=== PATIENT | female | born 2000 | race Caucasian/White ===

== ENCOUNTER 2021-11-25 07:46 | Outpatient (REF) | payer SELFPAY ==
[2021-11-25 10:33] LABS: MANUAL DIFF FLAG NO
[2021-11-25 10:49] LABS: Basophils Percent Auto 0.8 % (0-2); Eosinophils Absolute Auto 0.1 X10*3/uL (0.0-0.4); Hematocrit 39.3 % (37.0-47.0); Hemoglobin 13.2 g/dl (12.0-16.0); Imm Gran Abs Auto 0.01 X10*3/uL (0.00-0.03); Imm Gran Pct Auto 0.3 % (0.0-0.4); Lymphocytes Absolute Auto 2.1 X10*3/uL (1.2-4.9); Lymphocytes Percent Auto 52.5 % (20-40); Mean Corpuscular HGB Conc 33.6 g/dl (31.0-35.0); Mean Corpuscular Hemoglobin 32.4 pg (27.0-33.0); Mean Corpuscular Volume 96.6 fL (80.0-98.0); Mean Platelet Volume 10.3 fL (9.4-12.3); Monocytes Absolute Auto 0.4 X10*3/uL (0.1-1.2); Monocytes Percent Auto 8.8 % (2-11); Neutrophils Absolute Auto 1.4 x10*3/uL (2.0-8.3); Neutrophils Percent Auto 35.6 % (45-73); Platelet Count 202 X10*3/uL (160-400); Red Blood Count 4.07 X10*6/uL (4.20-5.50); Red Cell Distribution Width 13.2 % (11.0-16.0)
[2021-11-25 10:53] LABS: Alanine Aminotransferase 22 U/L (0-31); Albumin Level 3.9 g/dL (3.5-5.0); Alkaline Phosphatase 46 U/L (39-117); Anion Gap 15 (12-20); Aspartate Amino Transferase 21 U/L (5-31); Bilirubin Total 0.4 mg/dL (0.0-1.0); Blood Urea Nitrogen 12 mg/dL (9-16); Calcium 8.5 mg/dL (8.4-10.2); Carbon Dioxide 23 mmol/L (22-29); Chloride 105 mmol/L (96-108); Cholesterol 179 mg/dL; Estimated Glomerular Filt Rate > 60; Glucose Fasting 91 mg/dL (60-99); HDL Cholesterol 71 mg/dL; LDL Cholesterol Calculated 95 mg/dl; Potassium 4.4 mmol/L (3.3-5.1); Sodium 139 mmol/L (135-145); Total Protein 6.7 g/dL (6.5-8.0); Triglycerides 67 mg/dL
[2021-11-25 11:15] LABS: TSH reflex Free T4 1.49 uIU/mL (0.32-4.0)
== END 2021-11-25 07:47 | disposition home or self-care (01) ==
LOC: HO.WFDLDS 07:46
PROVIDERS: Visit Provider Nurse Practitioner Family
DX: Z00.00 Encounter for general adult medical examination without abnormal findings (principal); E03.9 Hypothyroidism, unspecified
CPT/HCPCS: 36415; 80053; 80061; 84443; 85025

== ENCOUNTER 2022-03-16 10:36 | Outpatient (REF) | payer SELFPAY | END 2022-03-16 10:37 | disposition home or self-care (01) | LOC: HO.WFDLDS 10:36 | PROVIDERS: Visit Provider Nurse Practitioner Family | DX: E03.9 Hypothyroidism, unspecified (principal) | CPT/HCPCS: 36415; 84443 ==

== ENCOUNTER 2022-05-06 11:10 | Outpatient (REF) | payer SELFPAY | END 2022-05-06 11:11 | disposition home or self-care (01) | LOC: HO.LNP 11:10 | PROVIDERS: Visit Provider Family Medicine | DX: Z01.419 Encounter for gynecological examination (general) (routine) without abnormal findings (principal) | CPT/HCPCS: 88142 ==

== ENCOUNTER 2022-05-25 15:02 | Outpatient (REF) | payer SELFPAY ==
--- NOTE | ~2022-05-25 | US_ITS ---
EXAMINATION: US PELVIS CLINICAL INFORMATION: Left adnexal tenderness, mass on bimanual exam. Rule out cyst versus mass. COMPARISON: None TECHNIQUE: Ultrasound of the pelvis is performed using both transabdominal and transvaginal transducers along with Doppler. Transvaginal imaging is performed due to inadequate visualization transabdominally. FINDINGS: Uterus: The uterus is anteverted and measures 7.6 x 3.2 x 4.4 cm. There is a 2.7 x 1.7 x 1.8 cm area of increased echogenicity in the posterior uterine fundus. This is not as well-circumscribed as a typical fibroid. This may reflect focal adenomyosis. The double wall endometrial thickness is 0.5 mm. The uterus is smooth in contour and has normal myometrial echogenicity. No visible fibroid. Adnexa: Both ovaries are visualized. There is normal color flow to the adnexa. There is no ovarian torsion. There is no pelvic ascites or fluid collection. Right ovary measures 3.1 x 1.1 x 1.0 cm. 1.8 mL. Left ovary measures 2.1 x 0.9 x 1.0 cm. 1.0 mL. US/US pelvic and transvaginal IMPRESSION: 2.7 cm area of increased echogenicity in the posterior uterine fundus which may represent focal adenomyosis. Infection not excluded. Consider pelvic MRI without and with contrast. The left ovary. No visible left adnexal mass.
== END 2022-05-25 15:03 | disposition home or self-care (01) ==
LOC: HO.US 15:02
PROVIDERS: PCP Family Medicine; Visit Provider Family Medicine
DX: N83.8 Other noninflammatory disorders of ovary, fallopian tube and broad ligament (principal)
CPT/HCPCS: 76830; 76856

== ENCOUNTER 2022-06-15 10:43 | Outpatient (REF) | payer SELFPAY ==
[2022-06-15 15:19] LABS: TSH reflex Free T4 0.96 uIU/mL (0.32-4.0)
== END 2022-06-15 10:44 | disposition home or self-care (01) ==
LOC: HO.WFDLDS 10:43
PROVIDERS: Visit Provider Nurse Practitioner Family
DX: E03.9 Hypothyroidism, unspecified (principal)
CPT/HCPCS: 36415; 84443

== ENCOUNTER 2022-08-03 10:38 | Outpatient (REF) | payer SELFPAY ==
[2022-08-03 13:49] LABS: MANUAL DIFF FLAG NO
[2022-08-03 14:03] LABS: Basophils Percent Auto 0.5 % (0-2); Eosinophils Absolute Auto 0.1 X10*3/uL (0.0-0.4); Eosinophils Percent Auto 1.6 % (0-4); Hematocrit 39.6 % (37.0-47.0); Hemoglobin 13.5 g/dl (12.0-16.0); Imm Gran Abs Auto 0.03 X10*3/uL (0.00-0.03); Imm Gran Pct Auto 0.5 % (0.0-0.4); Lymphocytes Absolute Auto 1.9 X10*3/uL (1.2-4.9); Lymphocytes Percent Auto 33.2 % (20-40); Mean Corpuscular HGB Conc 34.1 g/dl (31.0-35.0); Mean Corpuscular Hemoglobin 32.6 pg (27.0-33.0); Mean Corpuscular Volume 95.7 fL (80.0-98.0); Mean Platelet Volume 9.8 fL (9.4-12.3); Monocytes Absolute Auto 0.4 X10*3/uL (0.1-1.2); Monocytes Percent Auto 6.6 % (2-11); Neutrophils Absolute Auto 3.3 x10*3/uL (2.0-8.3); Neutrophils Percent Auto 57.6 % (45-73); Platelet Count 222 X10*3/uL (160-400); Red Blood Count 4.14 X10*6/uL (4.20-5.50); Red Cell Distribution Width 11.9 % (11.0-16.0); White Blood Count 5.8 X10*3/uL (4.8-10.8)
[2022-08-03 14:30] LABS: Alanine Aminotransferase 14 U/L (0-31); Albumin Level 3.8 g/dL (3.5-5.0); Alkaline Phosphatase 67 U/L (39-117); Anion Gap 12 (12-20); Aspartate Amino Transferase 19 U/L (5-31); Bilirubin Total 0.6 mg/dL (0.0-1.0); Blood Urea Nitrogen 12 mg/dL (9-16); Calcium 8.8 mg/dL (8.4-10.2); Carbon Dioxide 24 mmol/L (22-29); Chloride 105 mmol/L (96-108); Cholesterol 167 mg/dL; Estimated Glomerular Filt Rate > 60; Glucose Fasting 86 mg/dL (60-99); HDL Cholesterol 66 mg/dL; LDL Cholesterol Calculated 91 mg/dl; Potassium 4.1 mmol/L (3.3-5.1); Sodium 137 mmol/L (135-145); Total Protein 6.4 g/dL (6.5-8.0); Triglycerides 51 mg/dL
[2022-08-03 14:31] LABS: TSH reflex Free T4 1.98 uIU/mL (0.32-4.0)
[2022-08-03 14:37] LABS: Syphilis Screen Nonreactive (Nonreactive)
[2022-08-03 14:39] LABS: Free T4 (Free Thyroxine) 1.08 ng/dL (0.71-1.85); Thyroid Stimulating Hormone 1.95 uIU/mL (0.32-4.0)
[2022-08-05 07:28] LABS: Triiodothyronine T3 Total 160 ng/dL (76-181)
[2022-08-05 08:35] LABS: HBS Num1 0.68 mIU/mL (0-7.99); HBc Num1 0.15 S/CO (0.00-0.79); HBsAGNum1 0.33 S/CO (0.00-0.99); HIV AB/AG Nonreactive (Nonreactive); HIV Num 1 0.06 S/CO (0.00-0.99); Hepatitis B Core Antibody Nonreactive (Nonreactive); Hepatitis B Surface Antigen Negative (Negative); ~HepC Num1 0.13 S/CO (0.00-0.79); ~Hepatitis B Surface Antibody NONREACTIVE (Nonreactive); ~Hepatitis C Antibody Nonreactive (Nonreactive)
== END 2022-08-03 10:39 | disposition home or self-care (01) ==
LOC: HO.WFDLDS 10:38
PROVIDERS: Nurse Practitioner Family; Visit Provider Family Medicine
DX: Z00.00 Encounter for general adult medical examination without abnormal findings (principal); Z11.4 Encounter for screening for human immunodeficiency virus [HIV]; E03.9 Hypothyroidism, unspecified; Z20.2 Contact with and (suspected) exposure to infections with a predominantly sexual mode of transmission
CPT/HCPCS: 36415; 80053; 80061; 84439; 84443; 84480; 85025; 86704; 86706; 86780; 86803; 87340; 87389

== ENCOUNTER 2022-08-04 11:00 | Outpatient (REF) | payer SELFPAY ==
[2022-08-04 14:13] LABS: Appearance Urine Turbid; Color Urine Dark Yellow; Glucose Urine UA Negative (Negative); Leukocyte Esterase Urine Negative (Negative); Nitrite Urine Negative (Negative); Specific Gravity - Urine >= 1.030 (1.005-1.025); UMIC TRIGGER UA YES; Urine Blood Small (1+) (Negative); Urine Ketones Trace mg/dL (Negative); Urine Protein Trace mg/dL (Neg-Trace)
[2022-08-04 14:24] LABS: Bacteria Urine None Seen (None Seen); Hyaline Casts Urine 0-2 /LPF (0-2); RBC Urine 0-2 /HPF (0-2); WBC Urine 0-5 /HPF (0-5)
[2022-08-04 15:51] LABS: CT PCR NOT DETECTED (Not Detect.); NG PCR NOT DETECTED (Not Detect.)
== END 2022-08-04 11:01 | disposition home or self-care (01) ==
LOC: HO.WFDLNP 11:00
PROVIDERS: Visit Provider Family Medicine
DX: Z20.2 Contact with and (suspected) exposure to infections with a predominantly sexual mode of transmission (principal)
CPT/HCPCS: 0353U; 81001; 81003

== ENCOUNTER 2022-09-15 11:39 | Outpatient (REF) | payer SELFPAY | END 2022-09-15 11:40 | disposition home or self-care (01) | LOC: HO.LNP 11:39 | PROVIDERS: PCP Family Medicine; Visit Provider Obstetrics & Gynecology | DX: R10.2 Pelvic and perineal pain (principal); R31.29 Other microscopic hematuria | CPT/HCPCS: 81025; 87086; 99202 ==

== ENCOUNTER → 2022-10-06 12:02 | Outpatient (BNVA) | payer SELFPAY | PROVIDERS: PCP Family Medicine; Visit Provider Obstetrics & Gynecology | DX: R31.29 Other microscopic hematuria (principal) | CPT/HCPCS: 81003; 99212 ==

== ENCOUNTER 2022-12-21 07:44 | Outpatient (AMB) | payer SELFPAY ==
[2022-12-21 07:46] VITALS: BP 118/72; BMI 21.3
--- NOTE | 2022-12-21 07:46 | A.OFFVIS_ITS ---
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 Menstrual cycles are regular , light and non crampy. 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 Gender identity: Female Cognitive needs: No Hearing needs: No Vision needs: No Review of Systems Const All systems reviewed & are unremarkable except as noted in HPI and below Reports as per HPI and Reports no additional complaints GI Reports no additional complaints Reports no additional complaints Physical Exam Vital Signs: Last Vital Signs BP 118/72 12/21/22 07:46 BMI result Body Mass Index 21.3 Assessment & Plan Assessment & Plan (1) Contraceptive management: Code(s): Z30.9 - Encounter for contraceptive management, unspecified Plan: Will send a refill for control pills, instructions given the patient to schedule annual exam within 6 months. All questions answered, the patient ve rbalized understanding. Medications: Refilled norgestimate-ethinyl estradiol 0.25-35 mg-mcg (Hcantel) 1 tab PO DAILY 84 tabs 3RF 28 days Coding Level of Care Code Est Pt Level 3 (41088) Diagnoses Contraceptive management Z30.9
== END 2022-12-21 07:51 | disposition home or self-care (01) ==
PROVIDERS: PCP Family Medicine; Visit Provider Obstetrics & Gynecology
DX: Z30.9 Encounter for contraceptive management, unspecified (principal)
CPT/HCPCS: 99213

== ENCOUNTER → 2022-12-21 07:44 | Outpatient (BNVA) | payer SELFPAY | PROVIDERS: PCP Family Medicine; Visit Provider Obstetrics & Gynecology | DX: Z30.9 Encounter for contraceptive management, unspecified (principal) | CPT/HCPCS: 99212 ==

== ENCOUNTER 2023-02-08 09:26 | Outpatient (REF) | payer SELFPAY ==
[2023-02-08 12:19] LABS: Anion Gap 11 (12-20); Blood Urea Nitrogen 12 mg/dL (9-16); Calcium 9.1 mg/dL (8.4-10.2); Carbon Dioxide 22 mmol/L (22-29); Chloride 106 mmol/L (96-108); Estimated Glomerular Filt Rate > 60; Glucose Random 85 mg/dL (60-115); Potassium 4.2 mmol/L (3.3-5.1); Sodium 135 mmol/L (135-145)
[2023-02-08 12:20] LABS: Free T4 (Free Thyroxine) 1.25 ng/dL (0.71-1.85); Thyroid Stimulating Hormone 0.59 uIU/mL (0.32-4.0)
[2023-02-10 03:02] LABS: Triiodothyronine T3 Total 100 ng/dL (76-181)
== END 2023-02-08 09:27 | disposition home or self-care (01) ==
LOC: HO.WFDLDS 09:26
PROVIDERS: Visit Provider Family Medicine
DX: Z00.00 Encounter for general adult medical examination without abnormal findings (principal); E03.9 Hypothyroidism, unspecified
CPT/HCPCS: 36415; 80048; 84439; 84443; 84480

== ENCOUNTER 2023-02-15 16:21 | Outpatient (AMB) | payer SELFPAY ==
--- NOTE | 2023-02-15 16:16 | MHC.PC.OV ---
Intake Visit Reasons: f/u hypothyroidism Intake Note: Patient is calling to follow up on thyroid blood work. Allergies amoxicillin Allergy (Mild, Verified 02/15/23 16:19) Hives Penicillins Allergy (Mild, Verified 02/15/23 16:19) Hives wheat Allergy (Mild, Verified 02/15/23 16:19) projectile vomiting Tobacco use date assessed: 02/15/23 HPI f/u hypothyroidism HPI Details 22 y/o female presents to f/u hypothyroidism via telemedicine. Labs were drawn 02/08/23. Reviewed labs with pt. TSH level 0.59. Free T4 1.25. Total T3 100. She is on levothyroxine 100mcg daily. 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 Gender identity: Female Cognitive needs: No Hearing needs: No Vision needs: No Questionnaire Thrive Questionnaire Date Thrive assessed: 05/06/22 Review of Systems Const Denies chills, Denies fatigue, Denies fever(s), Denies headache(s) and Denies weakness ENT Denies dizziness and Denies headache(s) Card Denies dyspnea Resp Denies cough, Denies dyspnea, Denies wheezing and Denies other (shortness of breath) Musc Denies numbness and Denies tingling Neuro Denies dizziness, Denies headache(s), Denies numbness, Denies tingling and Denies weakness Psych Denies anxiety and Denies depression Endo Denies fatigue Aller/Immun Denies wheezing Physical exam (Primary Care) Tobacco/Smoking Status: Tobacco use Status Tobacco use date assessed 02/15/23 02/15/23 16:20 Patient Tobacco Use Status Never used Tobacco 02/15/23 16:17 e-Cigarette/Vaping Use Never Used 02/15/23 16:17 Thrive Assessment: Date of Thrive Assessment Date Thrive assessed 05/06/22 02/15/23 16:17 Telehealth Telehealth Location of provider rendering services: practice address Location of patient: address on file Patient Identification confirmed using: Name, : Yes Telehealth method: voice only Patient verbally consented to treatment: Yes Patient verbally consented to billing insurance company: Yes Patient informed of any privacy concerns related to visit: Yes Minutes spent on Phone/Video with Pt.: 5 Assessment and Plan Assessment & Plan (1) Hypothyroidism: Code(s): E03.9 - Hypothyroidism, unspecified Plan: TSH,?free?T4?and?total?T3?are?within?normal?limits?on?levothyroxine?100?mcg?daily. Continue?current?medication?regimen (2) Pelvic pain: Comment: Myoma versus adenomyosis by ultrasound Possible endometriosis Code(s): R10.2 - Pelvic and perineal pain Plan: Now?followed?by?[facility]?indoor landscaper/gardener?regarding?pelvic?pain?and?ultrasound?shows?myoma?versus?adenomyosis She?has?upcoming?ultrasound?and?follow-up?with?indoor landscaper/gardener Medications: Refilled norgestimate-ethinyl estradiol 0.25-35 mg-mcg (Chantel) 1 tab PO DAILY 28 days 84 tabs 3RF levothyroxine 100 mcg PO DAILY 90 days 90 tabs 3RF Coding Level of Care Code Tele Est Pt Level 2 (96995) Diagnoses Hypothyroidism E03.9 Pelvic pain R10.2
== END 2023-02-15 16:45 ==
LOC: HO.HMGFM 16:21
PROVIDERS: PCP Family Medicine; Visit Provider Family Medicine
DX: E03.9 Hypothyroidism, unspecified (principal); R10.2 Pelvic and perineal pain
CPT/HCPCS: 99212

== ENCOUNTER 2023-06-08 11:19 | Outpatient (REF) | payer SELFPAY ==
--- NOTE | ~2023-06-08 | US_ITS ---
EXAMINATION: US PELVIS CLINICAL INFORMATION: Pelvic and perineal pain; the last menstrual period was 2 weeks prior. COMPARISON: Pelvic ultrasound dated 05/25/2022. TECHNIQUE: Ultrasound of the pelvis is performed using both transabdominal and transvaginal transducers along with Doppler. Transvaginal imaging is performed due to inadequate visualization transabdominally. FINDINGS: Uterus: The uterus is anteverted and anteflexed. The uterus measures 9.3 x 3.5 x 4.2 cm. The double wall endometrial thickness is 3 mm. The uterus is smooth in contour and has normal myometrial echogenicity. No visible fibroid. Adnexa: Both ovaries are visualized. There is normal color flow to the adnexa. There is no ovarian torsion. There is no pelvic ascites or fluid collection. Right ovary measures 2.2 x 1.2 x 2.0 cm, volume 2.7 mm. Left ovary measures 2.6 x 0.9 x 1.5 cm, volume 1.8 mL. Within the lower quadrant at an area of bulging described by the patient, shotty, nonpathologically enlarged lymph nodes are seen, the largest measuring 9 x 4 x 9 mm. These show normal architecture. No sizable lymphadenopathy is seen. US/US pelvic and transvaginal IMPRESSION: 1. Unremarkable pelvic ultrasound examination. 2. Corresponding with the area of bulging in the left lower quadrant, there are shotty, nonpathologically enlarged lymph nodes. These are nonspecific and should be managed on a clinical basis. No sizable lymphadenopathy is seen.
== END 2023-06-08 11:20 | disposition home or self-care (01) ==
LOC: HO.US 11:19
PROVIDERS: PCP Family Medicine; Visit Provider Obstetrics & Gynecology
DX: R10.2 Pelvic and perineal pain (principal)
CPT/HCPCS: 76830; 76856

== ENCOUNTER 2023-06-28 07:24 | Outpatient (AMB) | payer MEDICAID, SELFPAY ==
[2023-06-28 07:29] VITALS: BP 120/74; BMI 21.3
--- NOTE | 2023-06-28 07:29 | MHC.OFFVIS ---
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 Complaining of heavy menstrual cycles associated with passage of blood clots on cyclic control pills, in addition left lower quadrant pain a few months' duration worse upon coughing or lifting heavy object Last Pap was negative in 05/02 [facility] Medical History Lumbar back pain Left ovarian cyst Hypothyroidism Surgical History H/O oral surgery History of lumbar fusion Social History Household Members: Spouse Housing: House Alcohol intake: current Alcohol intake frequency: a few times a week Patient Tobacco Use Status: Never used Tobacco e-Cigarette/Vaping Use: Never Used Substance Use Type: Marijuana service: No 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: 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 Gender identity: Female Cognitive needs: No Hearing needs: No Vision needs: No Female Reproductive History Menstrual Duration of menses: 6-7 days Date of last menstrual period: 06/20/23 control method: pills Total pregnancies: 0 Date of last pap smear: 05/06/22 Review of Systems Const All systems reviewed & are unremarkable except as noted in HPI and below Card Reports as per HPI Resp Reports as per HPI GI Reports as per HPI and Reports no additional complaints Reports as per HPI Physical Exam Vital Signs: Last Vital Signs BP 120/74 06/28/23 07:29 BMI result Body Mass Index 21.3 Const General: cooperative, healthy appearing and comfortable Chest Chest palpation & inspection: normal inspection of the chest and normal palpation of entire chest wall Breast/axilla inspection: normal inspection of the breasts and normal inspection of the axillae Breast/axilla palpation: normal palpation of the breasts, normal palpation of the axillae and no axillary lymphadenopathy Resp Effort & Inspection: normal respiratory effort Auscultation: clear to auscultation bilaterally Percussion: percussion normal Cardio Palpation: normal PMI Rate: regular rate Rhythm: regular rhythm Heart sounds: no murmurs and no rubs Peripheral pulses: Peripheral pulses 2+ throughout GI Inspection: Yes normal to inspection Palpation (GI): Soft to palpation, nontender, no guarding, not rigid, No hepatosplenomegaly present and Other GI palpation findings present (Left lower quadrant bulge on Valsalva) Percussion: Yes normal to percussion Auscultation: normal bowel sounds Rectal Exam - Female: deferred General: Yes bladder normal to palpation External Female Exam: No lesion Speculum Exam - Vagina: normal appearance of the vagina, normal palpation, normal vaginal discharge and not erythematous Speculum Exam - Cervix: normal appearance of the cervix and normal palpation Bimanual exam- vagina & uterus: normal bimanual exam, normal palpation, uterine size normal, bladder normal to palpation, consistency normal and normal palpation Bimanual Exam- Adnexa, other: normal adnexae, no masses and no tenderness Results AMB Test Urine AMB Test Urine Negative Last Edit by Nighat Haque CMA on 06/28/23 08:11 AMB Urinalysis Dipstick UR Leukocytes Trace Last Edit by Nighat Haque CMA on 06/28/23 08:12 UR Nitrite Negative Last Edit by Nighat Haque CMA on 06/28/23 08:12 UR Urobilinogen Normal Last Edit by Nighat Haque CMA on 06/28/23 08:12 UR Protein Trace Last Edit by Nighat Haque CMA on 06/28/23 08:12 UR Ph 6.0 Last Edit by Nighat Haque CMA on 06/28/23 08:12 UR Blood Negative Last Edit by Nighat Haque CMA on 06/28/23 08:12 UR Specific [place] 1.025 Last Edit by Nighat Haque CMA on 06/28/23 08:12 UR Ketone Trace Last Edit by Nighat Haque CMA on 06/28/23 08:12 UR Bilirubin Small Last Edit by Nighat Haque CMA on 06/28/23 08:12 UR Glucose Negative Last Edit by Nighat Haque CMA on 06/28/23 08:12 Results Reviewed Results Reviewed: Laboratory Last Values Urine pH (Clinic) 6.0 06/28/23 08:10 Specific [place] (Clinic) 1.025 06/28/23 08:10 Ur Protein (Clinic) Trace 06/28/23 08:10 Ur Ketones (Clinic) Trace 06/28/23 08:10 Urine Blood (Clinic) Negative 06/28/23 08:10 Urine Nitrite Negative 06/28/23 08:10 Urine Bilirubin (Clinic) Small 06/28/23 08:10 Urobilinogen (Clinic) Normal 06/28/23 08:10 Leukocyte Esterase (Clinic) Trace 06/28/23 08:10 Urine Glucose (Clinic) Negative 06/28/23 08:10 Tst Clinic Negative 06/28/23 08:10 Assessment & Plan Assessment & Plan (1) Well woman exam: Code(s): Z01.419 - Encounter for gynecological examination (general) (routine) without abnormal findings Plan: GC/CT collected, Pap smear not indicated this year. Counseled the patient about the recommended dietary allowance of 1000 mg of Calcium & 600 IU of vitamin D. The patient was instructed to perform monthly self-breast exams , to call for any changes in menstrual patterns and to schedule an annual exam in a year; all questions answered and the patient verbalized understanding. (2) Abnormal uterine bleeding: Code(s): N93.9 - Abnormal uterine and vaginal bleeding, unspecified Plan: Will order CBC, TSH, prolactin, hCG. GC/CT collected. The patient is up-to-date with her Pap smear and recently had a pelvic ultrasound. Instructions given the patient to finish this cycle control pill and switched to continuous control pills Seasonique thereafter and to schedule a 2 week follow-up appointment (3) Pelvic pain: Comment: Rule out inguinal hernia Possible endometriosis Code(s): R10.2 - Pelvic and perineal pain Plan: Urine dip and test done in the office were both negative. Will order CT scan to rule out inguinal hernia. Instructions given the patient to schedule a 2 week follow-up appointment Orders: Orders AMB HCG Urine Test Today Z32.02 - Encounter for test, result negative HCG Quantitative Today N93.9 - Abnormal uterine and vaginal bleeding, unspecified CT abdomen pelvis wo/w IV con Today R10.2 - Pelvic and perineal pain CT NG by PCR Today R10.2 - Pelvic and perineal pain AMB Urinalysis Dipstick Today R10.2 - Pelvic and perineal pain TSH reflex Free T4 Today N93.9 - Abnormal uterine and vaginal bleeding, unspecified Prolactin Today N93.9 - Abnormal uterine and vaginal bleeding, unspecified Complete Blood Count no Diff Today N93.9 - Abnormal uterine and vaginal bleeding, unspecified Medications: New L norgest/e.estradiol-e.estrad 0.15 mg-30 mcg (84)/10 mcg (7) 1 tab PO DAILY 84 days 84 ea 1RF Discontinued norgestimate-ethinyl estradiol 0.25-35 mg-mcg (Chantel) Discontinued Reason: No Longer Medically Relevant 1 tab PO DAILY 28 days 84 tabs 3RF Coding Level of Care Code Est Pt Prev Care 18-39y(71834) Diagnoses Well woman exam Z01.419 Abnormal uterine bleeding N93.9 Pelvic pain R10.2
== END 2023-06-28 08:39 | disposition home or self-care (01) ==
PROVIDERS: PCP Family Medicine; Visit Provider Obstetrics & Gynecology
DX: Z01.419 Encounter for gynecological examination (general) (routine) without abnormal findings (principal); N93.9 Abnormal uterine and vaginal bleeding, unspecified; R10.2 Pelvic and perineal pain; Z32.02 Encounter for pregnancy test, result negative
CPT/HCPCS: 99395

== ENCOUNTER 2023-06-28 07:24 | Outpatient (REF) | payer SELFPAY ==
[2023-06-28 15:05] LABS: CT PCR NOT DETECTED (Not Detect.); NG PCR NOT DETECTED (Not Detect.)
== END 2023-06-28 07:25 | disposition home or self-care (01) ==
LOC: HO.LNP 07:24
PROVIDERS: PCP Family Medicine; Visit Provider Obstetrics & Gynecology
DX: R10.2 Pelvic and perineal pain (principal); N93.9 Abnormal uterine and vaginal bleeding, unspecified
CPT/HCPCS: 0353U; 81002; 81025

== ENCOUNTER 2023-06-28 08:17 | Outpatient (REF) | payer SELFPAY ==
[2023-06-28 09:08] LABS: Hematocrit 38.3 % (37.0-47.0); Hemoglobin 13.2 g/dl (12.0-16.0); Mean Corpuscular HGB Conc 34.5 g/dl (31.0-35.0); Mean Corpuscular Hemoglobin 33.5 pg (27.0-33.0); Mean Corpuscular Volume 97.2 fL (80.0-98.0); Mean Platelet Volume 9.4 fL (9.4-12.3); Platelet Count 192 X10*3/uL (160-400); Red Blood Count 3.94 X10*6/uL (4.20-5.50); Red Cell Distribution Width 11.5 % (11.0-16.0)
[2023-06-28 10:19] LABS: HCG Quantitative < 2 mIU/mL; TSH reflex Free T4 0.56 uIU/mL (0.32-4.0)
[2023-06-30 09:02] LABS: Prolactin 7.8 ng/mL
== END 2023-06-28 08:18 | disposition home or self-care (01) ==
LOC: HO.LAB 08:17
PROVIDERS: Absent Provider Family Medicine; PCP Family Medicine; Visit Provider Obstetrics & Gynecology
DX: N93.9 Abnormal uterine and vaginal bleeding, unspecified (principal)
CPT/HCPCS: 36415; 84146; 84443; 84702; 85027

== ENCOUNTER 2023-07-17 13:22 | Outpatient (AMB) | payer SELFPAY ==
--- NOTE | 2023-07-17 13:31 | MHC.OFFVIS ---
Intake Vital Signs 07/17/23 13:34 Height 5 ft 5 in Weight 128 lb BMI 21.3 BP 120/70 Intake Visit Reasons: FMLA evaluation Allergies amoxicillin Allergy (Mild, Verified 07/17/23 13:31) Hives Penicillins Allergy (Mild, Verified 07/17/23 13:31) Hives wheat Allergy (Mild, Verified 07/17/23 13:31) projectile vomiting Is last menstrual period known: Yes Last menstrual period: 06/20/23 HPI HPI Comments History of Present Illness Details Presenting for follow-up . CBC, TSH, prolactin, hCG, GC and CT were negative Pelvic ultrasound showed the following Uterus: The uterus is anteverted and anteflexed. The uterus measures 9.3 x 3.5 x 4.2 cm. The double wall endometrial thickness is 3 mm. The uterus is smooth in contour and has normal myometrial echogenicity. No visible fibroid. Adnexa: Both ovaries are visualized. There is normal color flow to the adnexa. There is no ovarian torsion. There is no pelvic ascites or fluid collection. Right ovary measures 2.2 x 1.2 x 2.0 cm, volume 2.7 mm. Left ovary measures 2.6 x 0.9 x 1.5 cm, volume 1.8 mL. Within the lower quadrant at an area of bulging described by the patient, shotty, nonpathologically enlarged lymph nodes are seen, the largest measuring 9 x 4 x 9 mm. These show normal architecture. No sizable lymphadenopathy is seen. The patient was started on continuous control pills few weeks ago Complaining of abdominal/pelvic pain left lower and radiating to the back. 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 Gender identity: Female Cognitive needs: No Hearing needs: No Vision needs: No Female Reproductive History Menstrual Date of last menstrual period: 06/20/23 Review of Systems Const All systems reviewed & are unremarkable except as noted in HPI and below Reports as per HPI and Reports no additional complaints GI Reports no additional complaints Reports no additional complaints Physical Exam Vital Signs: Last Vital Signs BP 120/70 07/17/23 13:34 BMI result Body Mass Index 21.3 GI Palpation (GI): Soft to palpation, not firm, nontender and no guarding Assessment & Plan Assessment & Plan (1) Pelvic pain: Code(s): R10.2 - Pelvic and perineal pain Plan: CT scan is scheduled, with a follow-up appointment. Recommendation were given to the patient to continue control pills and follow-up in 3 months. Discussed with the patient the finding on ultrasound showing a left inguinal lymph node enlargement, recommended to the patient to schedule an appointment with her PCP regarding the abdominal pain/lymph node enlargement and rule out other non gynecological causes related to the pain. Instructions given the patient to call the emergency room in case of worsening or persistence of her pain. All questions answered, the patient verbalized understanding Coding Level of Care Code Est Pt Level 3 (53384) Diagnoses Pelvic pain R10.2
[2023-07-17 13:34] VITALS: BP 120/70; BMI 21.3
== END 2023-07-17 13:59 | disposition home or self-care (01) ==
PROVIDERS: PCP Family Medicine; Visit Provider Obstetrics & Gynecology
DX: R10.2 Pelvic and perineal pain (principal)
CPT/HCPCS: 99213

== ENCOUNTER → 2023-07-17 13:22 | Outpatient (BNVA) | payer SELFPAY | PROVIDERS: PCP Family Medicine; Visit Provider Obstetrics & Gynecology | DX: R10.2 Pelvic and perineal pain (principal); R59.0 Localized enlarged lymph nodes | CPT/HCPCS: 99212 ==

== ENCOUNTER 2023-08-09 11:25 | Outpatient (AMB) | payer OTHER, SELFPAY ==
[2023-08-09 11:30] VITALS: BP 122/62; PULSE 77; O2SAT 99; BMI 22.0
--- NOTE | 2023-08-09 11:30 | MHC.PC.OV ---
Vital Signs 08/09/23 11:30 Height 5 ft 5 in Weight 132 lb 4 oz BMI 22.0 BP 122/62 Blood Pressure Location Lt brachial Position Sitting Pulse 77 Pulse Source Pulse Oximeter Pulse Oximetry (%) 99 Oxygen Delivery Method Room Air Intake Visit Reasons: FMLA paperwork Intake Note: Patient is here for pelvic pain in left side by ovary for about a year, getting worse and worse. Allergies amoxicillin Allergy (Mild, Verified 08/09/23 11:32) Hives Penicillins Allergy (Mild, Verified 08/09/23 11:32) Hives wheat Allergy (Mild, Verified 08/09/23 11:32) projectile vomiting Tobacco use date assessed: 08/09/23 Dental Screening Dental Screen Date: 08/09/23 Did you have a dental visit in the last 12 months?: Yes Did you have a dental problem in the last 6 months where you did not have access to dental care?: No Was dental information given to patient?: Patient has dentist HPI FMLA paperwork HPI Details 22 y/o female presents today for FMLA paperwork. 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 Pt notes vaginal bleeding and she reports Saleem Hughes had given her control pills - she notes this has not helped. 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 Gender identity: Female Cognitive needs: No Hearing needs: No Vision needs: No Questionnaire Thrive Questionnaire Date Thrive assessed: 05/06/22 Review of Systems Const Denies chills, Denies fatigue, Denies fever(s), Denies headache(s) and Denies weakness ENT Denies dizziness and Denies headache(s) Card Denies dyspnea Resp Denies cough, Denies dyspnea, Denies wheezing and Denies other (shortness of breath) Musc Denies numbness and Denies tingling Neuro Denies dizziness, Denies headache(s), Denies numbness, Denies tingling and Denies weakness Psych Denies anxiety and Denies depression Endo Denies fatigue Aller/Immun Denies wheezing Physical exam (Primary Care) Vital Signs: Last Vital Signs Pulse 77 08/09/23 11:30 BP 122/62 08/09/23 11:30 Pulse Ox 99 08/09/23 11:30 Oxygen Delivery Method Room Air 08/09/23 11:30 BMI result Body Mass Index 22.0 Tobacco/Smoking Status: Tobacco use Status Tobacco use date assessed 08/09/23 08/09/23 11:35 Patient Tobacco Use Status Never used Tobacco 08/09/23 11:32 e-Cigarette/Vaping Use Never Used 08/09/23 11:32 Thrive Assessment: Date of Thrive Assessment Date Thrive assessed 05/06/22 08/09/23 11:32 Const General: well developed; No acute distress Nutritional Appearance: well nourished Orientation/consciousness: patient oriented x3 [facility] Head: Yes normocephalic and Yes atraumatic Eyes General: appearance normal, both eyes and all related structures Pupils: Equal, round and reactive pupils present EOM: EOMs intact bilaterally Resp Effort & Inspection: normal respiratory effort Neuro General: patient oriented x3 and gait normal Cranial nerves: Yes Equal, round and reactive pupils present Psych Affect: normal affect Assessment and Plan Assessment & Plan (1) Inguinal pain: Code(s): R10.30 - Lower abdominal pain, unspecified Plan: Left?inguinal?and?lower?pelvic?pain?which?radiates?to?the?back. Patient?is?concerned?regarding?a hernia. Other?possibilities?include?so?as?muscle?injury?or?infection Constipation,?gastrointestinal partial?obstruction Renal?stone?or?ureteral?stricture She?has?an?upcoming?CT?scan. Will?keep?patient?out?of?work?until?then?to?prevent?her?from?exerting?herself?and?causing?further?injury. 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 Filled?out?FMLA?paperwork.??She?has?been?out?since?June??and?will?be?out?until?August?.??I?will?follow-up?with?her?around?August?. She?has?an?upcoming?CT?scan?as?above?and?we?can?follow-up?on?this?as?well. (2) Inguinal lymphadenopathy: Code(s): R59.0 - Localized enlarged lymph nodes Plan: Prominent?lymph?nodes?but?ultrasound?states?no?pathological?lymphadenopathy (3) Vaginal bleeding: Code(s): N93.9 - Abnormal uterine and vaginal bleeding, unspecified Plan: Ongoing?vaginal?bleeding.??H&H?last?month?was?within?normal?range. This?does?not?seem?to?be?related?to?her?left?lower?quadrant?pain Was?started?on?a?continuous??control?pill?to?help?control?bleeding. She?should?follow-up?with?her?box printing machine operator?regarding?vaginal?bleeding. Orders: Orders Complete Blood Count Auto Diff Today R10.30 - Lower abdominal pain, unspecified, Z00.00 - Encounter for general adult medical examination without abnormal findings HIV Ab/Ag Today R10.30 - Lower abdominal pain, unspecified, Z11.3 - Encounter for screening for infections with a predominantly sexual mode of transmission Comprehensive Met. Panel Today R10.30 - Lower abdominal pain, unspecified UA and rflx microscopic Today R10.30 - Lower abdominal pain, unspecified, Z00.00 - Encounter for general adult medical examination without abnormal findings Syphilis Screen Today R10.30 - Lower abdominal pain, unspecified, Z11.3 - Encounter for screening for infections with a predominantly sexual mode of transmission Coding Level of Care Code Est Pt Level 3 (00287) Diagnoses Inguinal pain R10.30 Inguinal lymphadenopathy R59.0 Vaginal bleeding N93.9
== END 2023-08-09 12:41 | disposition home or self-care (01) ==
PROVIDERS: PCP Family Medicine; Visit Provider Family Medicine
DX: R10.30 Lower abdominal pain, unspecified (principal); R59.0 Localized enlarged lymph nodes; N93.9 Abnormal uterine and vaginal bleeding, unspecified
CPT/HCPCS: 99213

== ENCOUNTER 2023-08-09 12:25 | Outpatient (REF) | payer OTHER, SELFPAY ==
[2023-08-09 14:34] LABS: MANUAL DIFF FLAG NO
[2023-08-09 14:40] LABS: Appearance Urine Cloudy; Color Urine Yellow; Glucose Urine UA Negative (Negative); Leukocyte Esterase Urine Negative (Negative); Nitrite Urine Negative (Negative); PH 8.5 (5.0-9.0); Specific Gravity - Urine 1.025 (1.005-1.025); Urine Blood Negative (Negative); Urine Ketones Negative (Negative); Urine Protein Negative (Neg-Trace)
[2023-08-09 14:44] LABS: Basophils Percent Auto 0.7 % (0-2); Eosinophils Absolute Auto 0.1 X10*3/uL (0.0-0.4); Eosinophils Percent Auto 1.4 % (0-4); Hematocrit 38.8 % (37.0-47.0); Hemoglobin 13.3 g/dl (12.0-16.0); Imm Gran Abs Auto 0.02 X10*3/uL (0.00-0.03); Imm Gran Pct Auto 0.4 % (0.0-0.4); Lymphocytes Absolute Auto 1.9 X10*3/uL (1.2-4.9); Lymphocytes Percent Auto 34.4 % (20-40); Mean Corpuscular HGB Conc 34.3 g/dl (31.0-35.0); Mean Corpuscular Hemoglobin 33.7 pg (27.0-33.0); Mean Corpuscular Volume 98.2 fL (80.0-98.0); Mean Platelet Volume 9.7 fL (9.4-12.3); Monocytes Absolute Auto 0.4 X10*3/uL (0.1-1.2); Monocytes Percent Auto 7.4 % (2-11); Neutrophils Absolute Auto 3.1 x10*3/uL (2.0-8.3); Neutrophils Percent Auto 55.7 % (45-73); Platelet Count 214 X10*3/uL (160-400); Red Blood Count 3.95 X10*6/uL (4.20-5.50); Red Cell Distribution Width 11.9 % (11.0-16.0); White Blood Count 5.5 X10*3/uL (4.8-10.8)
[2023-08-09 15:12] LABS: Alanine Aminotransferase 13 U/L (0-31); Albumin Level 3.9 g/dL (3.5-5.0); Alkaline Phosphatase 38 U/L (39-117); Anion Gap 11 (12-20); Aspartate Amino Transferase 15 U/L (5-31); Bilirubin Total 0.5 mg/dL (0.0-1.0); Blood Urea Nitrogen 12 mg/dL (9-16); Calcium 8.8 mg/dL (8.4-10.2); Carbon Dioxide 23 mmol/L (22-29); Chloride 107 mmol/L (96-108); Estimated Glomerular Filt Rate > 60; Glucose Random 95 mg/dL (60-115); Potassium 3.9 mmol/L (3.3-5.1); Sodium 137 mmol/L (135-145); Total Protein 6.6 g/dL (6.5-8.0)
[2023-08-10 08:30] LABS: HIV AB/AG Nonreactive (Nonreactive); HIV Num 1 0.05 S/CO (0.00-0.99)
[2023-08-10 08:37] LABS: Syphilis Screen Nonreactive (Nonreactive)
== END 2023-08-09 12:26 | disposition home or self-care (01) ==
LOC: HO.WFDLDS 12:25
PROVIDERS: Visit Provider Family Medicine
DX: Z00.00 Encounter for general adult medical examination without abnormal findings (principal); R10.30 Lower abdominal pain, unspecified; Z11.3 Encounter for screening for infections with a predominantly sexual mode of transmission
CPT/HCPCS: 36415; 80053; 81003; 85025; 86780; 87389

== ENCOUNTER 2023-08-28 07:18 | Outpatient (REF) | payer OTHER, SELFPAY ==
--- NOTE | ~2023-08-28 | CT_ITS ---
EXAMINATION: CT ABDOMEN AND PELVIS WITH CONTRAST CLINICAL INFORMATION: Pelvic and perineal pain. COMPARISON: Pelvic ultrasound 06/08/2023. TECHNIQUE: Multidetector volumetric images were obtained from the superior aspect of the liver through the pubic symphysis following administration 85 mL of Omnipaque 350 intravenous contrast. Sagittal and coronal reformatted images were obtained on the technologist's workstation. Oral contrast: Yes This CT examination was performed using dose optimization techniques as appropriate, variously including the following: *Automated exposure control *Adjustment of mA and/or kV according to patient size (this includes techniques or standardized protocols for targeted exams where dose is matched to indication/reason for exam; i.e. extremities or head) *Use of iterative reconstruction technique DLP: 262 mGy-cm FINDINGS: LUNG BASES: The visualized lung bases are unremarkable. LIVER, GALLBLADDER, AND BILIARY TREE: Nonspecific subcentimeter hypodensity in segment 7 of the liver. This is likely a cyst or hemangioma. No imaging follow-up is recommended. No biliary ductal dilatation. The gallbladder appears normal. PANCREAS: No discrete pancreatic mass. No pancreatic ductal dilatation. SPLEEN: Unremarkable. ADRENAL GLANDS: No adrenal mass. KIDNEYS AND URETERS: The kidneys are normal in size, shape, and attenuation. No hydronephrosis, hydroureter, or calculi seen. No perinephric stranding. BLADDER: Unremarkable. GASTROINTESTINAL TRACT: The stomach appears normal. The small and large bowel are normal in caliber. Large stool ball in the rectum with surrounding rectal wall thickening and perirectal inflammation consistent with proctitis or stercoral colitis. ABDOMINAL WALL: Small fat-containing umbilical hernia. LYMPH NODES: No lymphadenopathy. VASCULAR: Normal caliber abdominal aorta. The IVC appears patent. PELVIC VISCERA: The uterus and adnexa are unremarkable by CT. OSSEOUS STRUCTURES: No suspicious osseous lesions. Mild degenerative disc disease at L5-S1. CT/CT abdomen pelvis w IV con IMPRESSION: Large stool ball in the rectum with surrounding rectal wall thickening and perirectal inflammation consistent with proctitis or stercoral colitis.
[2023-08-28] MEDS: iohexoL 350 MG/ML 100 ML INFUS..BTL 85 ML IV (10:23)
[2023-08-28] MEDS: Barium Sulfate Oral (Berry) 450 ML ORAL.SUSP 900 ML PO (10:24)
== END 2023-08-28 07:19 | disposition home or self-care (01) ==
LOC: HO.CT 07:18
PROVIDERS: PCP Family Medicine; Visit Provider Obstetrics & Gynecology
DX: R10.2 Pelvic and perineal pain (principal)
CPT/HCPCS: 74177; Q9967

== ENCOUNTER 2023-09-08 09:35 | Outpatient (AMB) | payer OTHER, SELFPAY ==
[2023-09-08 09:37] VITALS: BP 122/80; PULSE 87; O2SAT 98; BMI 21.5
--- NOTE | 2023-09-08 09:37 | A.OFFPC_ITS ---
Vital Signs 09/08/23 09:37 Height 5 ft 5 in Weight 129 lb BMI 21.5 BP 122/80 Blood Pressure Location Lt brachial Position Sitting Pulse 87 Pulse Source Pulse Oximeter Pulse Oximetry (%) 98 Oxygen Delivery Method Room Air Intake Visit Reasons: f/u inguinal pain, & Vaginal bleeding Intake Note: Patient is here for follow up on inguinal pain and vaginal bleeding, still feeling a lot of pain in her side. She also states she still has the vaginal bleeding. Allergies amoxicillin Allergy (Mild, Verified 09/08/23 09:43) Hives Penicillins Allergy (Mild, Verified 09/08/23 09:43) Hives wheat Allergy (Mild, Verified 09/08/23 09:43) projectile vomiting Tobacco use date assessed: 09/08/23 Dental Screening Dental Screen Date: 08/09/23 HPI f/u inguinal pain, & Vaginal bleeding HPI Details 22 y/o female presents to f/u inguinal p ain & vaginal bleeding. Pt reports ongoing pain in her side. She also reports ongoing vaginal bleeding. She has an upcoming appt. with Ob-Real Estate Account Executive in September. Recent ultrasound showed some shotty lymph nodes. 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 Gender identity: Female Cognitive needs: No Hearing needs: No Vision needs: No Questionnaire Thrive Questionnaire Date Thrive assessed: 05/06/22 Physical exam (Primary Care) Vital Signs: Last Vital Signs Pulse 87 09/08/23 09:37 BP 122/80 09/08/23 09:37 Pulse Ox 98 09/08/23 09:37 Oxygen Delivery Method Room Air 09/08/23 09:37 BMI result Body Mass Index 21.5 Tobacco/Smoking Status: Tobacco use Status Tobacco use date assessed 09/08/23 09/08/23 09:44 Patient Tobacco Use Status Never used Tobacco 09/08/23 09:40 e-Cigarette/Vaping Use Never Used 09/08/23 09:40 Thrive Assessment: Date of Thrive Assessment Date Thrive assessed 05/06/22 09/08/23 09:40 Results AMB Test Urine AMB Test Urine Negative Last Edit by Renetta Lockhart CMA on 09/07 10:26 AMB Urinalysis, Automated UA Leukoctes 0 Lelo/uL Last Edit by Renetta Lockhart, FLAKITO on 09/08/23 10:29 UA Nitrite Negative Last Edit by Renetta Lockhart, FLAKITO on 09/08/23 10:29 UA Urobilinogen 3.5 mg/dL Last Edit by Renetta Lockhart, FLAKITO on 09/08/23 10:29 UA Protein 15 mg/dL Last Edit by Renetta Lockhart, FLAKITO on 09/08/23 10:29 UA pH 6.5 Last Edit by Renetta Lockhart, FLAKITO on 09/08/23 10:29 UA Blood 0 Delfino/uL Last Edit by Renetta Lockhart, FLAKITO on 09/08/23 10:29 UA Specific [place] 1.020 Last Edit by Renetta Lockhart CMA on 09/08/23 10:2 9 UA Ketone Negative Last Edit by Renetta Lockhart CMA on 09/08/23 10:29 UA Bilirubin 0 mg/dL Last Edit by Renetta Lockhart CMA on 09/08/23 10:29 UA Glucose 0 mg/dL Last Edit by Renetta Lockhart CMA on 09/08/23 10:29 Assessment and Plan Assessment & Plan (1) Inguinal pain: Code(s): R10.30 - Lower abdominal pain, unspecified (2) Vaginal bleeding: Code(s): N93.9 - Abnormal uterine and vaginal bleeding, unspecified Orders: Orders AMB Urinalysis Automated Today Z13.9 - Encounter for screening, unspecified AMB HCG Urine Test Today R10.30 - Lower abdominal pain, unspecified Coding Level of Care Code Est Pt Level 3 (89588) Diagnoses Inguinal pain R10.30 Vaginal bleeding N93.9
--- NOTE | 2023-09-08 16:38 | MHC.PC.OV ---
Vital Signs 09/08/23 09:37 Height 5 ft 5 in Weight 129 lb BMI 21.5 BP 122/80 Blood Pressure Location Lt brachial Position Sitting Pulse 87 Pulse Source Pulse Oximeter Pulse Oximetry (%) 98 Oxygen Delivery Method Room Air Intake Visit Reasons: f/u inguinal pain, & Vaginal bleeding Intake Note: Patient is here to follow up on inquinal pain and vaginal bleeding, states she is still bleeding, and in pain, still. Allergies amoxicillin Allergy (Mild, Verified 09/08/23 09:43) Hives Penicillins Allergy (Mild, Verified 09/08/23 09:43) Hives wheat Allergy (Mild, Verified 09/08/23 09:43) projectile vomiting Tobacco use date assessed: 08/09/23 Dental Screening Dental Screen Date: 08/09/23 PFSH Medical History Lumbar back pain Left ovarian cyst Hypothyroidism Surgical History H/O oral surgery History of lumbar fusion Social History Household Members: Spouse Housing: House Alcohol intake: current Alcohol intake frequency: a few times a week Patient Tobacco Use Status: Never used Tobacco e-Cigarette/Vaping Use: Never Used Substance Use Type: Marijuana service: No 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: 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 Gender identity: Female Cognitive needs: No Hearing needs: No Vision needs: No Questionnaire Thrive Questionnaire Date Thrive assessed: 05/06/22 Physical exam (Primary Care) Vital Signs: Last Vital Signs Pulse 87 09/08/23 09:37 BP 122/80 09/08/23 09:37 Pulse Ox 98 09/08/23 09:37 Oxygen Delivery Method Room Air 09/08/23 09:37 BMI result Body Mass Index 21.5 Tobacco/Smoking Status: Tobacco use Status Tobacco use date assessed 08/09/23 08/09/23 11:35 Patient Tobacco Use Status Never used Tobacco 08/09/23 11:32 e-Cigarette/Vaping Use Never Used 08/09/23 11:32 Thrive Assessment: Date of Thrive Assessment Date Thrive assessed 05/06/22 08/09/23 11:32 Results AMB Test Urine AMB Test Urine Negative Last Edit by Renetta Lockhart CMA on 09/08/23 10:26 AMB Urinalysis, Automated UA Leukoctes 0 Lelo/uL Last Edit by Renetta Lockhart CMA on 09/08/23 10:29 UA Nitrite Negative Last Edit by Renetta Lockhart CMA on 09/08/23 10:29 UA Urobilinogen 3.5 mg/dL Last Edit by Renetta Lockhart CMA on 09/08/23 10:29 UA Protein 15 mg/dL Last Edit by Renetta Lockhart CMA on 09/08/23 10:29 UA pH 6.5 Last Edit by Renetta Lockhart, FLAKITO on 09/08/23 10:29 UA Blood 0 Delfino/uL Last Edit by Renetta Lockhart CMA on 09/08/23 10:29 UA Specific [place] 1.020 Last Edit by Renetta Lockhart CMA on 09/08/23 10:29 UA Ketone Negative Last Edit by Renetta Lockhart CMA on 09/08/23 10:29 UA Bilirubin 0 mg/dL Last Edit by Renetta Lockhart CMA on 09/08/23 10:29 UA Glucose 0 mg/dL Last Edit by Renetta Lockhart CMA on 09/08/23 10:29 Results Reviewed Results Reviewed: Laboratory Last Values Urine pH (Auto) 6.5 09/08/23 10:24 Specific [place] (Auto) 1.020 09/08/23 10:24 Urine Protein (Auto) 15 mg/dL 09/08/23 10:24 Glucose (UA)(Auto) 0 mg/dL 09/08/23 10:24 Urine Ketones (Auto) Negative 09/08/23 10:24 Urine Blood (Auto) 0 Delfino/uL 09/08/23 10:24 Urine Nitrite (Auto) Negative 09/08/23 10:24 Urine Bilirubin (Auto) 0 mg/dL 09/08/23 10:24 Urine Urobilinogen (Auto) 3.5 mg/dL 09/08/23 10:24 Leukocyte Esterase (Auto) 0 Lelo/uL 09/08/23 10:24 [facility]st Clinic Negative 09/08/23 10:24 Assessment and Plan Assessment & Plan (1) Inguinal pain: Code(s): R10.30 - Lower abdominal pain, unspecified (2) Vaginal bleeding: Code(s): N93.9 - Abnormal uterine and vaginal bleeding, unspecified Orders: Orders AMB Urinalysis Automated Today Z13.9 - Encounter for screening, unspecified AMB HCG Urine Test Today R10.30 - Lower abdominal pain, unspecified Coding Diagnoses Inguinal pain R10.30 Vaginal bleeding N93.9
== END 2023-09-08 11:01 | disposition home or self-care (01) ==
PROVIDERS: PCP Family Medicine; Visit Provider Family Medicine
DX: Z32.02 Encounter for pregnancy test, result negative (principal); R10.30 Lower abdominal pain, unspecified
CPT/HCPCS: 81003; 81025

== ENCOUNTER 2023-09-12 08:54 | Outpatient (AMB) | payer OTHER, SELFPAY ==
--- NOTE | 2023-09-12 09:03 | A.OFFVIS_ITS ---
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 The patient has been on control pills for the last few months, her pelvic pain is still persistent. The patient has an appointment with her PCP regarding enlarged lymph node seen on pelvic ultrasound done on 06/09/2023 CT scan done recently showed the following: IMPRESSION: Large stool ball in the rectum with surrounding rectal wall thickening and perirectal inflammation consistent with proctitis or stercoral colitis PFSH Medical History Lumbar back pain Left ovarian cyst Hypothyroidism Surgical History H/O oral surgery History of lumbar fusion Social History Household Members: Spouse Housing: House Alcohol intake: current Alcohol intake frequency: a few times a week Patient Tobacco Use Status: Never used Tobacco e-Cigarette/Vaping Use: Never Used Substance Use Type: Marijuana service: No 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: 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 Gender identity: Female Cognitive needs: No Hearing needs: No Vision needs: No Review of Systems Const All systems reviewed & are unremarkable except as noted in HPI and below Reports as per HPI and Reports no additional complaints GI Reports no additional complaints Reports no additional complaints Physical Exam Vital Signs: Last Vital Signs BP 108/70 09/12/23 09:06 BMI result Body Mass Index 21.3 Assessment & Plan Assessment & Plan (1) Abnormal CT of the abdomen: Code(s): R93.5 - Abnormal findings on diagnostic imaging of other abdominal regions, including retroperitoneum Category: Medical Plan: Discussed with the patient the abnormal findings on CT scan , the patient will discuss with her PCP , she has an appointment schedule today. All questions answered, the patient verbalized understanding (2) Pelvic pain: Code(s): R10.2 - Pelvic and perineal pain Category: Medical Plan: Recommended to continue continuous control pills and follow-up in 3 months while workup for abnormal CT finding and lymph node enlargement by PCP is complete. Will check the results and treat accordingly Medications: Refilled L norgest/e.estradiol-e.estrad 0.15 mg-30 mcg (84)/10 mcg (7) 1 tab PO DAILY 84 days 84 ea 1RF Coding Level of Care Code Est Pt Level 3 (70422) Diagnoses Abnormal CT of the abdomen R93.5 Pelvic pain R10.2
[2023-09-12 09:06] VITALS: BP 108/70; BMI 21.3
== END 2023-09-12 09:17 | disposition home or self-care (01) ==
LOC: HO.HWS 08:54
PROVIDERS: PCP Family Medicine; Visit Provider Obstetrics & Gynecology
DX: R93.5 Abnormal findings on diagnostic imaging of other abdominal regions, including retroperitoneum (principal); R10.2 Pelvic and perineal pain
CPT/HCPCS: 99213

== ENCOUNTER → 2023-09-12 08:54 | Outpatient (BNVA) | payer OTHER, SELFPAY | PROVIDERS: PCP Family Medicine; Visit Provider Obstetrics & Gynecology | DX: R93.5 Abnormal findings on diagnostic imaging of other abdominal regions, including retroperitoneum (principal); R10.2 Pelvic and perineal pain | CPT/HCPCS: 99212 ==

== ENCOUNTER 2023-09-12 13:41 | Outpatient (AMB) | payer OTHER, SELFPAY ==
--- NOTE | 2023-09-12 14:03 | A.OFFPC_ITS ---
Vital Signs 09/12/23 14:07 Height 5 ft 5 in Weight 129 lb 8 oz BMI 21.5 BP 116/60 Blood Pressure Location Lt brachial Position Sitting Pulse 86 Pulse Source Pulse Oximeter Pulse Oximetry (%) 99 Oxygen Delivery Method Room Air Intake Visit Reasons: follow up results from ct scan Intake Note: Patient is here with questions regarding her CT scan. Allergies amoxicillin Allergy (Mild, Verified 09/12/23 14:08) Hives Penicillins Allergy (Mild, Verified 09/12/23 14:08) Hives wheat Allergy (Mild, Verified 09/12/23 14:08) projectile vomiting Tobacco use date assessed: 09/12/23 Dental Screening Dental Screen Date: 08/09/23 HPI follow up results from ct scan HPI Details 22 y/o female presents to f/u CT scan. Abdomen/pelvis CT showed large stool ball in rectum with surrounding rectal wall thickening and perirectal inflammation consistent with procitis or stercoral colitis. HPI Comments History of Present Illness Details Documentation assistance for Eduin Briceno MD, was provided by Abner Rockwell, Mortgage Accounting Clerk on 09/12/2023 at 2:12 PM EST. I, Dr. Briceno, have read, observed, and verified documentation. 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 Gender identity: Female Cognitive needs: No Hearing needs: No Vision needs: No Questionnaire Thrive Questionnaire Date Thrive assessed: 05/06/22 Review of Systems Const Denies chills, Denies fatigue, Denies fever(s), Denies headache(s) and Denies weakness ENT Denies dizziness and Denies headache(s) Card Denies dyspnea Resp Denies cough, Denies dyspnea, Denies wheezing and Denies other (shortness of breath) Musc Denies numbness and Denies tingling Neuro Denies dizziness, Denies headache(s), Denies numbness, Denies tingling and Denies weakness Psych Denies anxiety and Denies depression Endo Denies fatigue Aller/Immun Denies wheezing Physical exam (Primary Care) Vital Signs: Last Vital Signs Pulse 86 09/12/23 14:07 BP 116/60 09/12/23 14:07 Pulse Ox 99 09/12/23 14:07 Oxygen Delivery Method Room Air 09/12/23 14:07 BMI result Body Mass Index 21.5 Tobacco/Smoking Status: Tobacco use Status Tobacco use date assessed 09/12/23 09/12/23 14:10 Patient Tobacco Use Status Never used Tobacco 09/12/23 14:05 e-Cigarette/Vaping Use Never Used 09/12/23 14:05 Thrive Assessment: Date of Thrive Assessment Date Thrive assessed 05/06/22 09/12/23 14:05 Const General: well developed; No acute distress Nutritional Appearance: well nourished Orientation/consciousness: patient oriented x3 HENMT Head: Yes normocephalic and Yes atraumatic Eyes General: appearance normal, both eyes and all related structures Pupils: Equal, round and reactive pupils present EOM: EOMs intact bilaterally Resp Effort & Inspection: normal respiratory effort Neuro General: patient oriented x3 and gait normal Cranial nerves: Yes Equal, round and reactive pupils present Psych Affect: normal affect Assessment and Plan Assessment & Plan (1) Proctitis: Code(s): K62.89 - Other specified diseases of anus and rectum Plan: Fecal?impaction?and?proctitis. Still?passing?some?stools. Referred?to?Gastroenterology Gave?her?a?script?for?doxycycline?and?also?MiraLax.??Advised?increased?hydration .??She?has?not?picked?up?her?medications?yet?but?will?do?so?today. Call?or?return?to?office?if?fevers?chills,?worsened?abdominal?pain,?nausea?or?vo miting?or?other?new,?concerning?symptoms. (2) Abnormal CT of the abdomen: Code(s): R93.5 - Abnormal findings on diagnostic imaging of other abdominal regions, including retroperitoneum Plan: As?above Coding Level of Care Code Est Pt Level 3 (68195) Diagnoses Proctitis K62.[address] of the abdomen R93.5
[2023-09-12 14:07] VITALS: BP 116/60; PULSE 86; O2SAT 99; BMI 21.5
== END 2023-09-12 14:30 | disposition home or self-care (01) ==
PROVIDERS: PCP Family Medicine; Visit Provider Family Medicine
DX: K62.89 Other specified diseases of anus and rectum (principal); R93.5 Abnormal findings on diagnostic imaging of other abdominal regions, including retroperitoneum
CPT/HCPCS: 99213

== ENCOUNTER 2023-09-29 14:33 | Outpatient (AMB) | payer OTHER, SELFPAY ==
--- NOTE | 2023-09-29 14:38 | A.OFFPC_ITS ---
Vital Signs 09/29/23 14:40 Height 5 ft 5 in Weight 128 lb 8 oz BMI 21.4 BP 110/62 Blood Pressure Location Lt brachial Position Sitting Pulse 101 H Pulse Source Pulse Oximeter Pulse Oximetry (%) 99 Oxygen Delivery Method Room Air Intake Visit Reasons: f/u abdominal pain Intake Note: Patient is here to follow up on abdominal pain, she states she does not feel much better. Allergies amoxicillin Allergy (Mild, Verified 09/29/23 14:42) Hives Penicillins Allergy (Mild, Verified 09/29/23 14:42) Hives wheat Allergy (Mild, Verified 09/29/23 14:42) projectile vomiting Medication List - Last Reconciled 09/29/23 by Eduin Briceno MD bisacodyl (Dulcolax (bisacodyl)) 10 mg PO BEDTIME glycerin (adult) (Fleet Glycerin (Adult) rectal suppository) 1 supp MN DAILY PRN L norgest/e.estradiol-e.estrad 0.15 mg-30 mcg (84)/10 mcg (7) 1 tab PO DAILY 84 days levothyroxine 100 mcg PO DAILY 90 days Tobacco use date assessed: 09/29/23 Dental Screening Dental Screen Date: 08/09/23 HPI f/u abdominal pain HPI Details 22 y/o female presents today to f/u abdo gladys pain. Fecal impaction/proctitis was seen, had referred to gastroenterology. Had given her a script for doxycylcine and MiraLax. Pt reports she does not feel much better. Pt reports miralax did not seem to work and had been using OTC dulcolax. Pt reports palpitations since she started taking her antibiotics. HPI Comments History of Present Illness Details Documentation assistance for Eduin Briceno MD, was provided by Abner Rockwell, Roof Panel Hanger on 09/29/2023 at 3:19 PM EST. I, Dr. Briceno, have read, observed, and verified documentation. 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 Gender identity: Female Cognitive needs: No Hearing needs: No Vision needs: No Questionnaire Thrive Questionnaire Date Thrive assessed: 05/06/22 Review of Systems Const Denies chills, Denies fatigue, Denies fever(s), Denies headache(s) and Denies weakness ENT Denies dizziness and Denies headache(s) Card Denies dyspnea Resp Denies cough, Denies dyspnea, Denies wheezing and Denies other (shortness of breath) Musc Denies numbness and Denies tingling Neuro Denies dizziness, Denies headache(s), Denies numbness, Denies tingling and Denies weakness Psych Denies anxiety and Denies depression Endo Denies fatigue Aller/Immun Denies wheezing Physical exam (Primary Care) Vital Signs: Last Vital Signs Pulse 101 H 09/29/23 14:40 BP 110/62 09/29/23 14:40 Pulse Ox 99 09/29/23 14:40 Oxygen Delivery Method Room Air 09/29/23 14:40 BMI result Body Mass Index 21.4 Tobacco/Smoking Status: Tobacco use Status Tobacco use date assessed 09/29/23 09/29/23 14:48 Patient Tobacco Use Status Never used Tobacco 09/29/23 14:39 e-Cigarette/Vaping Use Never Used 09/29/23 14:39 Thrive Assessment: Date of Thrive Assessment Date Thrive assessed 05/06/22 09/29/23 14:39 Const General: well developed; No acute distress Nutritional Appearance: well nourished Orientation/consciousness: patient oriented x3 HENMT Head: Yes normocephalic and Yes atraumatic Eyes General: appearance normal, both eyes and all related structures Pupils: Equal, round and reactive pupils present EOM: EOMs intact bilaterally Resp Effort & Inspection: normal respiratory effort Neuro General: patient oriented x3 and gait normal Cranial nerves: Yes Equal, round and reactive pupils present Psych Affect: normal affect Assessment and Plan Assessment & Plan (1) Abdominal pain: Code(s): R10.9 - Unspecified abdominal pain Plan: Patient?has stool?ball /fecal?impaction?with?abdominal?pain?and?rectal?inflammation/proctit is. Finished?now?with?doxycycline.??Gave?her?MiraLax?and?she?has?switched?this?to?Du lcolax?as?the?MiraLax?was?not?changing?her?stools. Now?has?liquid?stool?but?no?impacted?debris?and?patient?still?has?the?same?abdom inal?pain. Continue?Dulcolax?and?good?hydration.??Can?also?try?glycerin?suppository. If?not?working?she?can?pick?up?a?fleets?enema Had?made?referral?to?GI?and?requested?urgent?appointment?but?she?was?scheduled?f or?next?month.??Requesting?sooner?appointment. (2) Proctitis: Code(s): K62.89 - Other specified diseases of anus and rectum Plan: As?above Medications: New glycerin (adult) (Fleet Glycerin (Adult) rectal suppository) 1 supp MN DAILY PRN 12 ea 0RF constipation Coding Level of Care Code Est Pt Level 3 (15417) Diagnoses Abdominal pain R10.9 Proctitis K62.89
[2023-09-29 14:40] VITALS: BP 110/62; PULSE 101; O2SAT 99; BMI 21.4
== END 2023-09-29 15:34 | disposition home or self-care (01) ==
PROVIDERS: PCP Family Medicine; Visit Provider Family Medicine
DX: R10.9 Unspecified abdominal pain (principal); K62.89 Other specified diseases of anus and rectum
CPT/HCPCS: 99213

== ENCOUNTER 2023-10-20 10:48 | Outpatient (AMB) | payer OTHER, SELFPAY ==
[2023-10-20 10:55] VITALS: BP 116/62; PULSE 89; O2SAT 99; BMI 21.2
--- NOTE | 2023-10-20 10:55 | A.OFFPC_ITS ---
Vital Signs 10/20/23 10:55 Height 5 ft 5 in Weight 127 lb 8 oz BMI 21.2 BP 116/62 Blood Pressure Location Lt brachial Position Sitting Pulse 89 Pulse Source Pulse Oximeter Pulse Oximetry (%) 99 Oxygen Delivery Method Room Air Intake Visit Reasons: F/U abdominal pain Intake Note: Patient is here for follow up on abdominal pain, was seen at [facility] for chest pains, and palpitations that would not stop. Patient would referral to feather washer. Allergies amoxicillin Allergy (Mild, Verified 10/20/23 10:58) Hives Penicillins Allergy (Mild, Verified 10/20/23 10:58) Hives wheat Allergy (Mild, Verified 10/20/23 10:58) projectile vomiting Tobacco use date assessed: 10/20/23 Dental Screening Dental Screen Date: 08/09/23 HPI F/U abdominal pain HPI Details 22 y/o female presents to f/u abdominal pain. Had made referral to GI - had requested a sooner appt. Pt notes she had been unable to make a sooner appt. She reports ongoing abd. pain which is unchanged. She denies any fevers. She states she went to ED on October 15 for palpitations. EKG showed frequent PVCs which coincided with pt's sensation of palpitations. Pt reports ongoing intermittent palpitations and chest pain. 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 Gender identity: Female Cognitive needs: No Hearing needs: No Vision needs: No Questionnaire Thrive Questionnaire Date Thrive assessed: 05/06/22 Review of Systems Const Denies chills, Denies fatigue, Denies fever(s), Denies headache(s) and Denies weakness ENT Denies dizziness and Denies headache(s) Card Denies dyspnea Resp Denies cough, Denies dyspnea, Denies wheezing and Denies other (shortness of breath) Musc Denies numbness and Denies tingling Neuro Denies dizziness, Denies headache(s), Denies numbness, Denies tingling and Denies weakness Psych Denies anxiety and Denies depression Endo Denies fatigue Aller/Immun Denies wheezing Physical exam (Primary Care) Vital Signs: Last Vital Signs Pulse 89 10/20/23 10:55 BP 116/62 10/20/23 10:55 Pulse Ox 99 10/20/23 10:55 Oxygen Delivery Method Room Air 10/20/23 10:55 BMI result Body Mass Index 21.2 Tobacco/Smoking Status: Tobacco use Status Tobacco use date assessed 10/20/23 10/20/23 10:58 Patient Tobacco Use Status Never used Tobacco 10/20/23 10:58 e-Cigarette/Vaping Use Never Used 10/20/23 10:58 Thrive Assessment: Date of Thrive Assessment Date Thrive assessed 05/06/22 10/20/23 10:58 Const General: well developed; No acute distress Nutritional Appearance: well nourished Orientation/consciousness: patient oriented x3 [facility] Head: Yes normocephalic and Yes atraumatic Eyes General: appearance normal, both eyes and all related structures Pupils: Equal, round and reactive pupils present EOM: EOMs intact bilaterally Resp Effort & Inspection: normal respiratory effort Auscultation: clear to auscultation bilaterally Cardio Rate: regular rate Rhythm: regular rhythm Heart sounds: S1 normal heart sound present, S2 normal heart sound present, no gallops, no murmurs and no rubs Neuro General: patient oriented x3 and gait normal Cranial nerves: Yes Equal, round and reactive pupils present Psych Affect: normal affect Assessment and Plan Assessment & Plan (1) Abdominal pain: Code(s): R10.9 - Unspecified abdominal pain Plan: Still?has?ongoing?abdominal?discomfort?though?this?appears?less?acute Has?appointment?with?Gastroenterology?coming?up. Continue?good?hydration Go?to?ED?if?worsening?pain?or?any?fevers?chills, nausea?or?vomiting. (2) Palpitation: Code(s): R00.2 - Palpitations Plan: Palpitations?and?patient?was?at?the?ED?4?days?ago.??EKG?showed?frequent?PVCs?whi ch?coincided?with?patient's?sensation?of?palpitations. EKG?today?shows?sinus?rhythm?with?short?CA?interval?of?102?ms. ?Normal?axis,?no?hypertrophy,?no?ST-T-wave?changes. No?delta?slurring. Short?CA?can?be?associated?with?WPW?but?as?above?I?do?not?see?any?delta?slowing. However?this?can?also?be?ass ociated?with?LDL?syndrome?which?I?can?not?rule?out?today. Will?check?Holter?monitor.??Will?check?echocardiogram. Will?refer?patient?to?Cardiology As?blood?pressure?and?heart?rate?can?tolerate,?will?t rial?a?low?dose?of?metoprolol (3) Chest pain: Code(s): R07.9 - Chest pain, unspecified Plan: As?above Orders: Orders AMB EKG-In Office Today R00.2 - Palpitations, R07.9 - Chest pain, unspecified CA echo transthoracic complete Today R00.2 - Palpitations ECG holter monitor 48 hour Today R00.2 - Palpitations Referrals Cardiology Referral I49.3 - Ventricular premature depolarization, R00.2 - Palpitations, R94.31 - Abnormal electrocardiogram [ECG] [EKG] Medications: New metoprolol succinate ER 12.5 mg (1/2 x 25 mg) PO DAILY 30 days PRN 30 tabs 1RF Palpitations R00.2 - Palpitations Coding Level of Care Code Est Pt Level 4 (51791) Diagnoses Abdominal pain R10.9 Palpitation R00.2 Chest pain R07.9
== END 2023-10-20 13:02 | disposition home or self-care (01) ==
PROVIDERS: PCP Family Medicine; Visit Provider Family Medicine
DX: R10.9 Unspecified abdominal pain (principal); R00.2 Palpitations; R07.9 Chest pain, unspecified
CPT/HCPCS: 93000; 99214

== ENCOUNTER → 2023-11-06 10:00 | Outpatient (REF) | payer OTHER, SELFPAY ==
--- NOTE | 2023-11-06 10:03 | CA_ITS ---
Transthoracic Echocardiogram Patient (Last, First, Middle): Alissa Johnson, Gender: Female Date of : 2000 Age: 22 Procedure Date: 11/06/2023 Procedure Type: Transthoracic Echocardiogram Location: OP Height: 167.64 cm Weight: 56.7 kg BSA: 1.64 m2 Heart Rate: bpm BP: 112 / 67 mmHg Copy Machine Operator: OBDULIA Referring MD: Eduin Briceno MD Symptoms: R00.2 - Palpitations Study Quality: Adequate ECG Rhythm: Sinus Conclusions: - The left ventricular systolic function is normal. The calculated ejection fraction is 64% by biplane method. - No obvious valvular pathology seen on this study. Findings Left Ventricle Normal left ventricular cavity size. There is normal left ventricular wall thickness. The left ventricular systolic function is normal. The calculated ejection fraction is 64% by biplane method. There is no evidence of regional wall motion abnormalities. Diastolic function is normal for age. Right Ventricle Normal right ventricular cavity size and systolic function. Atria Both atria are normal in size. Aortic Valve There is a normal trileaflet aortic valve. There is no aortic valve stenosis. There is no aortic valve regurgitation. Mitral Valve The mitral valve appears normal. There is trace mitral valve regurgitation. There is no mitral valve stenosis. Pulmonic Valve The pulmonic valve is likely normal. Tricuspid Valve Normal tricuspid valve structure. There is mild tricuspid valve regurgitation. There is no evidence of pulmonary hypertension. Great Vessels The asc aorta is normal in size. Venous The inferior vena cava is normal in size and collapses greater than 50% with inspiration. Pericardium/Pleural There is no evidence of pericardial effusion. Prior Study Comparison No prior study available for comparison. Recommendations, Care & Conclusions No obvious valvular pathology seen on this study. Measurements 2D Linear Measurements IVSd: 0.76 0.6-0.9/0.6-1.0 cm LVIDd: 4.53 3.9-5.3/4.2-5.9 cm LVIDd Index: 2.76 2.4-3.2/2.2-3.1 cm/m2 LVIDs: 3.16 2.0-3.6 cm LVPWd: 1.02 0.7-1.1 cm LA Diam: 3.00 2.7-3.8/3.0-4.0 cm LAIDs Index: 1.83 1.5-2.3 cm/m2 LV Mass: 164.24 67-162/88-224 g LV Mass Index: 100.15 43-95/49-115 g/m2 LVOT Diam: 1.70 3.0+(-)1.3 cm 2D Systolic Function EF 4C: 60.70 >55% EF 2C: 65.80 >55% EF BiP: 64.10 >55% Mitral Valve MV Pk E: 0.89 MV PK A: 0.40 MV Decel Time: 194.00 E/A: 2.20 E'Lateral: 15.60 E'Medial: 13.50 E/E' Med: 6.60 E/E' Lat: 5.70 PHT: 57.00 MVA PHT: 3.86 Decel [place]: 4.58 Aortic Valve AoV Pk Yonny: 1.59 AoV Mn Yonny: 1.01 AoV VTI: 0.37 AoV Pk Grad: 10.00 Aov Mn Grad: 5.00 BRAYAN Cont.VTI: 1.60 LVOT LVOT Pk Yonny: 1.17 LVOT Mn Yonny: 0.82 LVOT VTI: 0.26 LVOT Pk Grad: 5.00 LVOT Mn Grad: 3.00 LVOT Diam: 1.70 LVOT Area: 2.27 Diastolic Function MV Pk E: 0.89 MV Pk A: 0.40 E/A: 2.20 E'Medial: 13.50 E/E' Med: 6.60 E' Laterial: 15.60 E/E' Lat: 5.70 Right Ventricle TAPSE (mm): 22.30 TVS' Yonny: 12.10 Tricuspid Valve TR Pk Yonny: 2.55 TR Pk Grad: 26.00 RA Press: 3.00 RVSP: 29.00 Great Vessels Aorta Sinus of Valsalva: 2.18 2.0-3.[address] [place]: 1.84 1.7-3.4 cm Ao Asc: 2.40 2.1-3.4 cm Ao Arch: 2.20 Updated in Other Vendor System with Status of Final Jass Bob MD electronically signed on 11/06/2023 12:25:50 PM with status of Final
--- NOTE | 2023-11-06 10:03 | HM_ITS ---
Conclusion: 1. Patient was monitored for total period of 2 days 2. Baseline was normal sinus rhythm with average heart of 79 beats per minute 3. No significant pauses noted 4. Rare PVCs noted with total PVC burden of 84/2 days with total burden of 0.04% 5. Patient reported 6 events correlating with PVCs MTDD
== END ==
LOC: HO.CARD 10:00
PROVIDERS: PCP Family Medicine; Visit Provider Family Medicine
DX: R00.2 Palpitations (principal)
CPT/HCPCS: 93225; 93306

== ENCOUNTER → 2023-11-06 10:03 | Outpatient (BNV) | payer OTHER, SELFPAY | PROVIDERS: PCP Family Medicine; Visit Provider Internal Medicine | DX: I49.3 Ventricular premature depolarization (principal) | CPT/HCPCS: 93227; 93306 ==

== ENCOUNTER 2023-12-05 09:41 | Outpatient (AMB) | payer OTHER, SELFPAY ==
--- NOTE | 2023-12-05 09:46 | A.OFFPC_ITS ---
Vital Signs 12/05/23 09:50 Height 5 ft 5 in Weight 131 lb BMI 21.8 BP 104/50 L Blood Pressure Location Lt brachial Position Sitting Respiration 12 Pulse 85 Pulse Source Pulse Oximeter Temp 96.4 F L Temp Source Tympanic Pulse Oximetry (%) 98 Oxygen Delivery Method Room Air Intake Visit Reasons: f/u palpitations Intake Note: F/u for results on echocardiogram and holter monitor Allergies amoxicillin Allergy (Mild, Verified 12/05/23 09:47) Hives Penicillins Allergy (Mild, Verified 12/05/23 09:47) Hives wheat Allergy (Mild, Verified 12/05/23 09:47) projectile vomiting Tobacco use date assessed: 10/20/23 Dental Screening Dental Screen Date: 08/09/23 HPI f/u palpitations HPI Details 23 y/o female presents to f/u palpitatio ns. Had ordered a holter monitor, echocardiogram. Referred pt. to Cardiology. EKG last office visit showed sinus rhythm with short MT interval of 102 ms. Normal axis, no hypertrophy, no ST-T-wave changes. No delta slurring. Echo and holter monitor had looked fine. She has an appt. with Cardiology in January. She notes she continues to take laxatives for abd. pain. She reports ongoing abd. pain but she states pain has not been as bad as before. Had been unable to f/u with GI due to her palpitations/cardiac concerns. HPI Comments History of Present Illness Details Documentation assistance for Eduin Briceno MD, was provided by Abner Rockwell,? Land Use Planner on 12/05/2023 at 10:10 AM EST. I, Dr. Briceno, have read, observed, and verified documentation. [facility] Medical History (Updated 12/05/23 @ 10:04 by Abner Rockwell) Palpitation Normal physical examination, routine Vaginal Pap smear Ovarian cyst Screening for cervical cancer Bacterial vaginosis Laboratory examination ordered as part of a complete physical examination Screening for STD (sexually transmitted disease) Adult general medical exam Contraceptive management Well woman exam Vaginal bleeding Proctitis Chest pain Lumbar back pain Left ovarian cyst Hypothyroidism Surgical History H/O oral surgery History of lumbar fusion Social History Household Members: Spouse Housing: House Alcohol intake: current Alcohol intake frequency: a few times a week Patient Tobacco Use Status: Never used Tobacco e-Cigarette/Vaping Use: Never Used Substance Use Type: Marijuana service: No 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: 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 Gender identity: Female Cognitive needs: No Hearing needs: No Vision needs: No Questionnaire Thrive Questionnaire Date Thrive assessed: 05/06/22 Review of Systems Const Denies chills, Denies fatigue, Denies fever(s), Denies headache(s) and Denies weakness ENT Denies dizziness and Denies headache(s) Card Denies dyspnea Resp Denies cough, Denies dyspnea, Denies wheezing and Denies other (shortness of breath) Musc Denies numbness and Denies tingling Neuro Denies dizziness, Denies headache(s), Denies numbness, Denies tingling and Denies weakness Psych Denies anxiety and Denies depression Endo Denies fatigue Aller/Immun Denies wheezing Physical exam (Primary Care) Vital Signs: Last Vital Signs Temp 96.4 F L 12/05/23 09:50 Pulse 85 12/05/23 09:50 Resp 12 12/05/23 09:50 BP 104/50 L 12/05/23 09:50 Pulse Ox 98 12/05/23 09:50 Oxygen Delivery Method Room Air 12/05/23 09:50 BMI result Body Mass Index 21.8 Tobacco/Smoking Status: Tobacco use Status Tobacco use date assessed 10/20/23 12/05/23 09:51 Patient Tobacco Use Status Never used Tobacco 12/05/23 09:51 e-Cigarette/Vaping Use Never Used 12/05/23 09:51 Thrive Assessment: Date of Thrive Assessment Date Thrive assessed 05/06/22 12/05/23 09:51 Const General: well developed; No acute distress Nutritional Appearance: well nourished Orientation/consciousness: patient oriented x3 HENMT Head: Yes normocephalic and Yes atraumatic Eyes General: appearance normal, both eyes and all related structures Pupils: Equal, round and reactive pupils present EOM: EOMs intact bilaterally Resp Effort & Inspection: normal respiratory effort Neuro General: patient oriented x3 and gait normal Cranial nerves: Yes Equal, round and reactive pupils present Psych Affect: normal affect Assessment and Plan Assessment & Plan (1) Palpitation: Code(s): R00.2 - Palpitations Plan: Echocardiogram?and?Holter?monitor?tests?are?essentially?normal Still?has?palpitations?without?metoprolol?but?notes?that?the?metoprolol?has?been ?helping?significantly. Continue?metoprolol She?has?an?appointment?with?cardiology?in?January (2) Abnormal CT of the abdomen: Code(s): R93.5 - Abnormal findings on diagnostic imaging of other abdominal regions, including retroperitoneum Plan: Ongoing?abdominal?discomfort?and stool?ball?seen?on?CT?scan She?is?referred?to?Gastroenterology?but?they?are?holding?off?due?to?palpitations ?and?abnormal?EKG. Continue?hydrating?well.??Call?or?return?to?office?if?worsens?or?go?to?the?ED Follow-up?with?Gastroenterology?as?soon?as?able (3) Abdominal pain: Code(s): R10.9 - Unspecified abdominal pain Plan: As?above Coding Level of Care Code Est Pt Level 3 (48333) Diagnoses Palpitation R00.[address] of the abdomen R93.5 Abdominal pain R10.9
[2023-12-05 09:50] VITALS: BP 104/50; PULSE 85; RESP 12; TEMP 35.8; O2SAT 98; BMI 21.8
== END 2023-12-05 10:16 | disposition home or self-care (01) ==
PROVIDERS: PCP Family Medicine; Visit Provider Family Medicine
DX: R00.2 Palpitations (principal); R93.5 Abnormal findings on diagnostic imaging of other abdominal regions, including retroperitoneum; R10.9 Unspecified abdominal pain
CPT/HCPCS: 99213

== ENCOUNTER 2023-12-20 09:25 | Outpatient (AMB) | payer OTHER, SELFPAY ==
--- NOTE | 2023-12-20 09:35 | MHC.OFFVIS ---
Vital Signs 12/20/23 09:38 Height 5 ft 5 in Weight 130 lb 1.164 oz BMI 21.6 BP 120/72 Intake Visit Reasons: 3 month BCP/pain follow up Allergies amoxicillin Allergy (Mild, Verified 12/05/23 09:47) Hives Penicillins Allergy (Mild, Verified 12/05/23 09:47) Hives wheat Allergy (Mild, Verified 12/05/23 09:47) projectile vomiting HPI Comments Details: Doing well with no complaints, pelvic pain has improved markedly, with no history of abnormal uterine bleeding anymore, her primary care refer to GI for further investigation regarding abnormal CT and constipation [facility] Medical History (Updated 12/20/23 @ 09:41 by Saleem Hughes MD) Palpitation Normal physical examination, routine Vaginal Pap smear Ovarian cyst Screening for cervical cancer Bacterial vaginosis Laboratory examination ordered as part of a complete physical examination Screening for STD (sexually transmitted disease) Adult general medical exam Contraceptive management Well woman exam Vaginal bleeding Proctitis Chest pain Lumbar back pain Left ovarian cyst Hypothyroidism Surgical History H/O oral surgery History of lumbar fusion Social History Household Members: Spouse Housing: House Alcohol intake: current Alcohol intake frequency: a few times a week Patient Tobacco Use Status: Never used Tobacco e-Cigarette/Vaping Use: Never Used Substance Use Type: Marijuana service: No 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: 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 Gender identity: Female Cognitive needs: No Hearing needs: No Vision needs: No Review of Systems Const All systems reviewed & are unremarkable except as noted in HPI and below Reports as per HPI and Reports no additional complaints GI Reports no additional complaints Reports no additional complaints Physical Exam Vital Signs: Last Vital Signs BP 120/72 12/20/23 09:38 BMI result Body Mass Index 21.6 Assessment & Plan Assessment & Plan (1) Pelvic pain: Comment: Improved markedly Code(s): R10.2 - Pelvic and perineal pain Category: Medical Plan: Recommended to continue on continuous control pills, refill sent. Instructions given the patient to call in case of abnormal uterine bleeding and or recurrence of her pelvic pain. All questions answered, the patient verbalized understanding. Medications: Refilled L norgest/e.estradiol-e.estrad 0.15 mg-30 mcg (84)/10 mcg (7) 1 tab PO DAILY 84 ea 3RF 84 days Coding Level of Care Code Est Pt Level 3 (65886) Diagnoses Pelvic pain R10.2
[2023-12-20 09:38] VITALS: BP 120/72; BMI 21.6
== END 2023-12-20 09:43 | disposition home or self-care (01) ==
PROVIDERS: PCP Family Medicine; Visit Provider Obstetrics & Gynecology
DX: R10.2 Pelvic and perineal pain (principal)
CPT/HCPCS: 99213

== ENCOUNTER → 2023-12-20 09:25 | Outpatient (BNVA) | payer OTHER, SELFPAY | PROVIDERS: PCP Family Medicine; Visit Provider Obstetrics & Gynecology | DX: R10.2 Pelvic and perineal pain (principal) | CPT/HCPCS: 99212 ==

== ENCOUNTER 2024-01-31 09:40 | Outpatient (AMB) | payer OTHER, SELFPAY ==
[2024-01-31 09:43] VITALS: BP 98/54; PULSE 97; BMI 21.6
--- NOTE | 2024-01-31 09:43 | A.OFFVIS_ITS ---
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 Few months back, she had an episode of palpitations. 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 However, it can not review that strip. After that, she got seen in the [facility] ER but there was nothing obvious. She still gets some palpitations off and on some days more than the others. She got put on beta-blockers. After that, there is some improvement in symptoms but she has been getting some nonspecific chest pains and she also gets dizzy. Her blood pressure is on the lower side and medication might be the reason. Otherwise, no previous cardiac history. No syncopal episodes. No family history of any inherited cardiomyopathies or sudden cardiac . [facility] Medical History (Updated 01/31/24 @ 10:09 by Jass Bob MD) Palpitation Normal physical examination, routine Vaginal Pap smear Ovarian cyst Screening for cervical cancer Bacterial vaginosis Laboratory examination ordered as part of a complete physical examination Screening for STD (sexually transmitted disease) Adult general medical exam Contraceptive management Well woman exam Vaginal bleeding Proctitis Chest pain Lumbar back pain Left ovarian cyst Hypothyroidism Surgical History H/O oral surgery History of lumbar fusion Family History (Updated 01/31/24 @ 09:47 by Renetta Le CMA) Maternal Grandmother Heart problem Mother Hypothyroidism Social History Household Members: Spouse Housing: House Alcohol intake: current Alcohol intake frequency: a few times a week Patient Tobacco Use Status: Never used Tobacco e-Cigarette/Vaping Use: Never Used Substance Use Type: Marijuana service: No 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: 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 Gender identity: Female Cognitive needs: No Hearing needs: No Vision needs: No Review of Systems Const Denies chills, Denies daytime sleepiness, Denies fatigue, Denies fever(s), De nies poor appetite, Denies snoring, Denies stops breathing during sleep, Denies weakness, Denies weight gain and Denies weight loss Eyes Denies loss of vision ENT Denies dizziness and Denies hearing loss Card Denies chest pain, Denies irregular heart rhythm, Denies claudication, Denies leg edema, Denies lightheadedness, Reports palpitations, Denies dyspnea on exertion and Denies orthopnea Resp Denies cough, Denies excessive phlegm production, Denies dyspnea on exertion, Denies snoring and Denies wheezing GI Denies abdominal pain, Denies hematochezia, Denies change in bowel habits, Denies nausea and Denies vomiting Denies urinary frequency and Denies dysuria Musc Denies arthralgias, Denies muscle weakness, Denies numbness and Denies other Skin/Breast Denies nail changes and Denies rash Neuro Denies Abnormal speech present, Denies dizziness, Denies loss of vision, Denies memory loss, Denies numbness and Denies weakness Psych Denies depression and Denies memory loss Endo Denies fatigue and Reports palpitations Austyn/Lymph Denies easy bruising Aller/Immun Denies wheezing Physical Exam Vital Signs: Last Vital Signs Pulse 97 01/31/24 09:43 BP 98/54 L 01/31/24 09:43 BMI result Body Mass Index 21.6 Const General: comfortable and no acute distress Orientation/consciousness: patient oriented x3 HEENT Other: Unremarkable Head: Yes normal to inspection Neck Neck: Yes normal visual inspection Chest Chest palpation & inspection: normal inspection of the chest Resp Auscultation: clear to auscultation bilaterally Cardio Palpation: normal PMI Heart sounds: S1 normal heart sound present, S2 normal heart sound present, no gallops, no murmurs and no rubs GI Palpation (GI): Soft to palpation Back/Spine/Pelvis Other: unremarkable Skin General skin exam: no rashes or lesions noted Neuro General: patient oriented x3 Speech: No Abnormal speech present Extrem General: Yes normal to inspection Psych Mental Status: mental status grossly normal Assessment & Plan Assessment & Plan (1) PVC (premature ventricular contraction): Code(s): I49.3 - Ventricular premature depolarization Category: Medical Plan In the EKG from [facility], underlying rhythm is sinus; no significant ST-T changes; normal [place] and corrected QT. no clear evidence of pre-excitation. In the echocardiogram, LVEF is 64%. No wall motion abnormalities and otherwise unremarkable. In the Holter monitor, underlying rhythm is sinus with very rare PVCs and a burden of only 0.04%. Patient events correlated with PVCs. Overall, low burden PVCs but still symptomatic. As she is also getting some dizziness which is probably from low blood pressure, may use low-dose beta-blockers as needed. We will get a Holter monitor for another 14 days as she states some days are much worse in the others. She also states activity increases the palpitations and we will do a stress test assess that and especially to see if there is any evidence of VT. Follow-up after testing. Discussed with family. Orders: Orders ECG 14 day holter monitor Today Jass Bob MD I49.3 - Ventricular premature depolarization, R00.2 - Palpitations CA stress test Today Jass Bob MD I49.3 - Ventricular premature depolarization, R07.2 - Precordial pain Medications: Changed From metoprolol succinate ER Changing to 90 days for insurance 12.5 mg (1/2 x 25 mg) PO DAILY PRN 90 tabs 0RF Palpitations 90 days R00.2 - Palpitations To metoprolol succinate ER Changing to 90 days for insurance 12.5 mg PO DAILY R00.2 - Palpitations Eduin Briceno MD Coding Level of Care Code New Pt Level 3 (34263) Diagnoses PVC (premature ventricular contraction) I49.3
== END 2024-01-31 10:12 | disposition home or self-care (01) ==
PROVIDERS: PCP Family Medicine; Visit Provider Internal Medicine
DX: I49.3 Ventricular premature depolarization (principal)
CPT/HCPCS: 99213

== ENCOUNTER → 2024-01-31 09:40 | Outpatient (BNVA) | payer OTHER, SELFPAY | PROVIDERS: PCP Family Medicine; Visit Provider Internal Medicine | DX: I49.3 Ventricular premature depolarization (principal) | CPT/HCPCS: 99212 ==

== ENCOUNTER 2024-02-14 08:22 | Outpatient (AMB) | payer OTHER, SELFPAY ==
--- NOTE | 2024-02-14 08:37 | MHC.PC.OV ---
Vital Signs 02/14/24 08:41 Height 5 ft 5 in Weight 132 lb 6 oz BMI 22.0 BP 110/50 L Blood Pressure Location Rt brachial Position Sitting Respiration 16 Pulse 82 Pulse Source Pulse Oximeter Temp 98.6 F Temp Source Oral Pulse Oximetry (%) 97 Oxygen Delivery Method Room Air Intake Visit Reasons: f/u palpitations, abd. pain- NEEDS PHQ9 Intake Note: f/u for palpitations and abd pain phq-9 completed pt also states she has another cardiology appt tomorrow for holter monitor [id number] and a stress test Allergies amoxicillin Allergy (Mild, Verified 12/05/23 09:47) Hives Penicillins Allergy (Mild, Verified 12/05/23 09:47) Hives wheat Allergy (Mild, Verified 12/05/23 09:47) projectile vomiting Medication List - Last Reconciled 02/14/24 by Eduin Briceno MD L norgest/e.estradiol-e.estrad 0.15 mg-30 mcg (84)/10 mcg (7) 1 tab PO DAILY 84 days levothyroxine 100 mcg PO DAILY 90 days metoprolol succinate ER 12.5 mg PO DAILY Tobacco use date assessed: 10/20/23 Dental Screening Dental Screen Date: 08/09/23 HPI f/u palpitations, abd. pain- NEEDS PHQ9 HPI Details 23 y/o female presents to f.u palpitations, abdominal discomfort. Saw Cardiology 01/31/24. They ordered stress test, holter monitor for an additional 14 days. Holter monitor coincided with some PVCs. PHQ-9/HECTOR-7 fine today. Reports ongoing palpitations/chest discomfort. [facility] Medical History (Updated 01/31/24 @ 10:09 by Jass Bob MD) Palpitation Normal physical examination, routine Vaginal Pap smear Ovarian cyst Screening for cervical cancer Bacterial vaginosis Laboratory examination ordered as part of a complete physical examination Screening for STD (sexually transmitted disease) Adult general medical exam Contraceptive management Well woman exam Vaginal bleeding Proctitis Chest pain Lumbar back pain Left ovarian cyst Hypothyroidism Surgical History H/O oral surgery History of lumbar fusion Family History (Updated 01/31/24 @ 09:47 by Renetta Le CMA) Maternal Grandmother Heart problem Mother Hypothyroidism Social History Household Members: Spouse Housing: House Alcohol intake: current Alcohol intake frequency: a few times a week Patient Tobacco Use Status: Never used Tobacco e-Cigarette/Vaping Use: Never Used Substance Use Type: Marijuana service: No 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: 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 1. Little interest or pleasure in doing things: not at all 2. Feeling down, depressed, or hopeless: not at all 3. Trouble falling or staying asleep, or sleeping too much: not at all 4. Feeling tired or having little energy: not at all 5. Poor appetite or overeating: not at all 6. Feeling bad about yourself - or that you are a failure or have let yourself or your family down: not at all 7. Trouble concentrating on things, such as reading the newspaper or watching television: not at all 8. Moving or speaking so slowly that other people could have noticed. Or the opposite - being so fidgety or restless that you have been moving around a lot more than usual: not at all 9. Thoughts that you would be better off or of hurting yourself in some way: not at all Total score: 0 Depression Screening Interpretation: Negative Depression Screening Done: Yes 47074 - PHQ-9 Billing: Yes Source: Developed by Drs. Juan Kwok, Radha Walters, Ky Avendano and colleagues, with an educational kiana from [employer]. Thrive Questionnaire Date Thrive assessed: 02/14/24 I am a: Patient What is your living situation today?: I have a steady place to live Within the past 12 months, did the food you bought not last and you didn't have the money to get more?: Never true Within the past 12 months, did you worry whether your food would run out before you got money to buy more?: Never true Do you have trouble paying for medicines?: No Do you have trouble getting transportation to medical appointments?: No Do you have trouble paying your heating and electricity bill?: No Do you have trouble taking care of your child, family member or friend?: No Do you have trouble with day-to-day activities such as bathing, preparing meals, shopping, managing finances, etc.?: No Are you currently unemployed and looking for a job?: No Are you interested in more education?: I choose not to answer this question Please select the resources that you would like help with: None Currently or been in a relationship where the following occur: No concerns reported THRIVE Score: 0 AUDIT C Alcohol Use Questionnaire (AUDIT-C) 1. How often do you have a drink containing alcohol?: 2-4 times a month 2. How many drinks containing alcohol do you have on a typical day when you are drinking?: 1 or 2 3. How often do you have six or more drinks on one occasion?: Less than monthly Total Score: 3 Score Reviewed/Action Taken: Yes HECTOR-7 AMB Questionnaire HECTOR-7 Date HECTOR - 7 assessed: 02/14/24 Feeling nervous, anxious, or on edge: 0 = Not at all Not being able to stop or control worryin = Not at all Worrying too much about different things: 0 = Not at all Trouble relaxin = Not at all Being so restless that it is hard to sit still: 0 = Not at all Becoming easily annoyed or irritable: 0 = Not at all Feeling afraid as if something awful might happen: 0 = Not at all Total HECTOR-7 score (0-4 normal; 5-9 mild; 10-14 moderate; 15-21 severe): 0 Source: Developed by Drs. Juan Kwok, Radha Walters, Ky Avendano and colleagues, with an educational kiana from [employer]. HECTOR-7 Assessment Billing HECTOR-7 Assessment Tool: HECTOR-7 Assessment 95736 Review of Systems Const Denies chills, Denies fatigue, Denies fever(s), Denies headache(s) and Denies weakness ENT Denies dizziness and Denies headache(s) Card Denies chest pain, Denies lightheadedness, Denies dyspnea and Denies other (Palpitations) Resp Denies cough, Denies dyspnea, Denies wheezing and Denies other ( shortness of breath) Musc Denies numbness and Denies tingling Neuro Denies dizziness, Denies headache(s), Denies numbness, Denies tingling, Denies paresthesias and Denies weakness Psych Denies anxiety and Denies depression Endo Denies fatigue Aller/Immun Denies wheezing Physical exam (Primary Care) Vital Signs: Last Vital Signs Temp 98.6 F 02/14/24 08:41 Pulse 82 02/14/24 08:41 Resp 16 02/14/24 08:41 BP 110/50 L 02/14/24 08:41 Pulse Ox 97 02/14/24 08:41 Oxygen Delivery Method Room Air 02/14/24 08:41 BMI result Body Mass Index 22.0 Tobacco/Smoking Status: Tobacco use Status Tobacco use date assessed 10/20/23 02/14/24 08:40 Patient Tobacco Use Status Never used Tobacco 02/14/24 08:40 e-Cigarette/Vaping Use Never Used 02/14/24 08:40 PHQ-9: PHQ-9 Score PHQ-9: Total score 0 02/14/24 08:53 Depression Screening Interpretation: Negative Thrive Assessment: Date of Thrive Assessment Date Thrive assessed 02/14/24 02/14/24 08:40 Currently or been in a relationship where the following occur: No concerns reported Const General: no acute distress and well developed Nutritional Appearance: well nourished Orientation/consciousness: patient oriented x3 HENMT Head: Yes normocephalic and Yes atraumatic Eyes General: appearance normal, both eyes and all related structures Pupils: Equal, round and reactive pupils present EOM: EOMs intact bilaterally Resp Effort & Inspection: normal respiratory effort Auscultation: clear to auscultation bilaterally Cardio Rate: regular rate Rhythm: regular rhythm Heart sounds: S1 normal heart sound present, S2 normal heart sound present, no gallops, no murmurs and no rubs Neuro General: patient oriented x3 and gait normal Cranial nerves: Yes Equal, round and reactive pupils present Psych Affect: normal affect Coding Level of Care Code Est Pt Level 3 (47553) Diagnoses Palpitation R00.2 PVC (premature ventricular contraction) I49.3 Abdominal pain R10.9 Additional Codes HECTOR-7 Assessment Billing - HECTOR-7 Assessment Tool: HECTOR-7 Assessment 25824 ([id number]) PHQ-9 - 99421 - PHQ-9 Billing: Yes ([id number]) Assessment & Plan Assessment & Plan (1) Palpitation: Code(s): R00.2 - Palpitations Category: Medical Plan: Ongoing?occasional?palpitations?and?some?chest?discomfort. Workup?so?far?is?reassuring.??Cardiology?has?ordered?another?Holter?monitor?test?and?also?stress?test. She?can?use?metoprolol?intermittently?when?she?is?symptomatic.??Encouraged?good?hydration Follow-up?with?Cardiology?as?recommended (2) PVC (premature ventricular contraction): Code(s): I49.3 - Ventricular premature depolarization Category: Medical Plan: As?above (3) Abdominal pain: Code(s): R10.9 - Unspecified abdominal pain Category: Medical Plan: This?has?significantly?improved?with?OCP?and?she?is?followed?by?ob/gyn physician Orders: Orders Triiodothyronine T3 Total Today E03.9 - Hypothyroidism, unspecified Free T4 (Free Thyroxine) Today E03.9 - Hypothyroidism, unspecified Comprehensive Met. Panel Today E03.9 - Hypothyroidism, unspecified Thyroid Stimulating Hormone Today E03.9 - Hypothyroidism, unspecified
[2024-02-14 08:41] VITALS: BP 110/50; PULSE 82; RESP 16; TEMP 37; O2SAT 97; BMI 22.0
== END 2024-02-14 09:04 | disposition home or self-care (01) ==
LOC: HO.HMCFM 08:23
PROVIDERS: PCP Family Medicine; Visit Provider Family Medicine
DX: R00.2 Palpitations (principal); I49.3 Ventricular premature depolarization; R10.9 Unspecified abdominal pain

== ENCOUNTER → 2024-02-14 08:22 | Outpatient (BNVA) | payer OTHER, SELFPAY | PROVIDERS: PCP Family Medicine; Visit Provider Family Medicine | DX: R00.2 Palpitations (principal); I49.3 Ventricular premature depolarization; R10.9 Unspecified abdominal pain | CPT/HCPCS: 96127; 99212 ==

== ENCOUNTER → 2024-02-15 08:57 | Outpatient (REF) | payer OTHER, SELFPAY ==
--- NOTE | 2024-02-15 08:59 | HM_ITS ---
* Total monitoring time 2 days. * Underlying rhythm is sinus with an average rate of 85/Min. * Rare supraventricular ectopy. * Rare ventricular ectopy. * No significant pauses or high-grade AV blocks. * Patient markers associated with sinus rhythm. * Symptoms in patient diary including chest discomfort, dizziness, correlates with sinus rhythm and sinus tachycardia. MTDD
--- NOTE | 2024-02-15 08:59 | CA_ITS ---
Acquisition Time: 2024-02-15 09:06:31 Total Exercise Time: 00:10:08 Test Indications: PVC'S Medications: Protocol: NIKITA Max HR: 190 BPM 97% of Pred: 195 BPM Max BP: 148/074 mmHG Max Work Load: 11.9 METS Exercise Stress Test with exercise 10 mins 8secs of Nikita Protocol, achieving 95% MPHR, with left sides 2/10 continual stabbing pain at baseline which increased to 4 with exercise and slowly returned to baseline at recovery, with isolated PVCs during recovery, with normotensive response to exercise. Without EKG changes meeting criteria for ischemia. Test reviewed with Dr. Tolentino. Referred By: Jass Bob Overread By: ANITA ALVAREZ
== END ==
LOC: HO.CARD 08:57
PROVIDERS: PCP Family Medicine; Visit Provider Internal Medicine
DX: R07.2 Precordial pain (principal); R00.2 Palpitations; I49.3 Ventricular premature depolarization
CPT/HCPCS: 93017; 93246

== ENCOUNTER → 2024-02-15 08:59 | Outpatient (BNV) | payer OTHER, SELFPAY | PROVIDERS: PCP Family Medicine; Visit Provider Nurse Practitioner Family | DX: I47.10 Supraventricular tachycardia, unspecified (principal) | CPT/HCPCS: 93016; 93018; 93227 ==

== ENCOUNTER 2024-05-14 10:02 | Outpatient (REF) | payer OTHER, SELFPAY ==
--- OUTSIDE RECORDS SUMMARY | 2024-05-14 10:45 | XMS_ITS | Encounter Summary ---
Author Organization [facility] Address [address] [place] [phone] Phone Care Team Providers Care Technical Clerk Name Role Phone Clarissa Sargent MD Primary Care Provider Dominic zelaya Encounter Details Date Type Department Care Team (Late st Contact Info) Description 08/27/2017 Conversion [facility]counter [facility] [address] [id number] Indy Turk MD [address] [place] [address] Social History Tobacco Use Types Packs/Day Years Used Date Smoking Tobacco: Never Assessed Comments Unknown Sex and Gender Information Value Date Recorded Sex Assigned at Not on file Legal Sex Female 6:15 PM EDT Gender Identity Not on file Sexual Orientation Not on file documented as of this encounter Plan of Treatment Not on file documented as of this encounter Visit Diagnoses Not on filedocumented in this encounter Care Teams Technical Clerk Relationship Specialty Start Date End Date Clarissa Sargent MD PCP - General 09/26/19 documented as of this encounter
--- OUTSIDE RECORDS SUMMARY | 2024-05-14 10:45 | XMS_ITS | Clinical Summary ---
Author Organization [facility] Address [address] [place] [phone] Phone Care Team Providers Care Photo Editor Name Role Phone Clarissa Sargent MD Primary Care Provider Unavailabl e Immunizations Name Administration Dates Next Due DTaP 12/02/2003, 1,05/07/1999, 999,01/12/1999 Hep B, ped/adol 08/13/1999,05/07/1999,03/12/1999 Hib (PRP-T) 02/23/2000, 0,03/12/1999, 999 IPV 12/02/2003, 0,03/12/1999, 999 MMR 11/25/2002,02/23/2000 Meningococcal Conj (Menactra) MCV4P 12/16/2014,0 09/20/2011 Pneumococcal Conjugate 02/23/2000,11/19/1999 Tdap 09/07/2010 Varicella 09/07/2010,11/20/2000 Family History Relation Name Status Comments Father Alive Healthy, Celiac 's age: 50 Maternal Grandfather Alive diabete s, hypertension diagnosed with Hypertension, DMII WO CMP NT ST UNCNTR Maternal Grandmother rheumat ic fever related heart problems Mother Alive hypothyroid age : 48 Other Alive Siblings: Healt hy Paternal Grandfather Alive macular degeneration Paternal Grandmother Alive macular degeneration Social History Tobacco Use Types Packs/Day Years Used Date Smoking Tobacco: Never Assessed Comments Unknown Sex and Gender Information Value Date Recorded Sex Assigned at Not on file Legal Sex Female 6:15 PM EDT Gender Identity Not on file Sexual Orientation Not on file Last Filed Vital Signs Vital Sign Reading Time Taken Comments Blood Pressure 116/66 12/16/2014 12:00 AM EDT Pulse - - Temperature - - Respiratory Rate - - Oxygen Saturation - - Inhaled Oxygen Concentration - - Weight 55.3 kg (122 lb) 12/16/2014 12:00 AM EDT Height 163.8 cm (5' 4.5 ) 12/16/2014 12:00 AM ED T Body Mass Index 20.62 12/16/2014 12:00 AM EDT Plan of Treatment Health Maintenance Due Date Last Done Comments HPV Vaccines (1 - 3-dose series) 2013 DTaP,Tdap,and Td Vaccines (7 - Td or Tdap) 09/07/2020 09/07/2010, 12/02/2003, 05/26/2000, Additional history exists Influenza Vaccines (#1) 2023 COVID-19 Vaccine (2023- season) 2023 Hepatitis B Vaccines Completed 08/13/1999, 05/07/1999, 03/12/1999 HIB Vaccines Completed 02/23/2000, 04/11, 03/12/1999, Additional history exists Pneumococcal Vaccine Completed 02/23/2000, 11/19/19 00 MMR Vaccines Completed 11/25/2002, 02/23/2000 IPV Vaccines Completed 12/02/2003, 11/08, 03/12/1999, Additional history exists Varicella Vaccines Completed 09/07/2010, 11/20/2000 Meningococcal Vaccine Completed 12/16/2014, 012 Hepatitis A Vaccines Aged Out No long er eligible based on patient's age to complete this topic Men B Vaccine Aged Out No longer elig ible based on patient's age to complete this topic Care Teams Photo Editor Relationship Specialty Start Date End Date Clarissa Sargent MD PCP - General 09/26/19
[2024-05-14 12:00] LABS: Alanine Aminotransferase 30 U/L (0-31); Albumin Level 3.9 g/dL (3.5-5.0); Alkaline Phosphatase 39 U/L (39-117); Anion Gap 17 (12-20); Aspartate Amino Transferase 32 U/L (5-31); Bilirubin Total 0.4 mg/dL (0.0-1.0); Blood Urea Nitrogen 10 mg/dL (9-16); Calcium 8.3 mg/dL (8.4-10.2); Carbon Dioxide 21 mmol/L (22-29); Chloride 106 mmol/L (96-108); Estimated Glomerular Filt Rate > 60; Glucose Random 92 mg/dL (60-115); Sodium 140 mmol/L (135-145); Total Protein 6.7 g/dL (6.5-8.0)
[2024-05-14 12:20] LABS: Free T4 (Free Thyroxine) 1.47 ng/dL (0.71-1.85); Thyroid Stimulating Hormone 2.97 uIU/mL (0.32-4.0)
[2024-05-15 16:29] LABS: Triiodothyronine T3 Total 104 ng/dL (76-181)
== END 2024-05-14 10:03 | disposition home or self-care (01) ==
LOC: HO.WFDLDS 10:02
PROVIDERS: Visit Provider Family Medicine
DX: E03.9 Hypothyroidism, unspecified (principal)
CPT/HCPCS: 36415; 80053; 84439; 84443; 84480

== ENCOUNTER → 2024-05-15 14:30 | Outpatient (BNVA) | payer OTHER, SELFPAY | PROVIDERS: PCP Family Medicine; Visit Provider Internal Medicine | DX: I49.3 Ventricular premature depolarization (principal) | CPT/HCPCS: 93005; 99212 ==

== ENCOUNTER → 2024-05-31 09:46 | Outpatient (BNVA) | payer OTHER, SELFPAY | PROVIDERS: PCP Family Medicine; Visit Provider Family Medicine ==

== ENCOUNTER 2024-07-30 11:50 | Outpatient (AMB) | payer OTHER, SELFPAY ==
--- NOTE | 2024-07-30 12:06 | A.OFFVIS_ITS ---
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 No complaints. Last Pap smear was negative in 05/02 [facility] Medical History (Updated 07/30/24 @ 12:11 by Saleem Hugehs MD) Well woman exam Palpitation Normal physical examination, routine Vaginal Pap smear Ovarian cyst Screening for cervical cancer Bacterial vaginosis Laboratory examination ordered as part of a complete physical examination Screening for STD (sexually transmitted disease) Adult general medical exam Contraceptive management Vaginal bleeding Proctitis Chest pain Lumbar back pain Left ovarian cyst Hypothyroidism Surgical History H/O oral surgery History of lumbar fusion Family History Maternal Grandmother Heart problem Mother Hypothyroidism Social History Household Members: Spouse Housing: House Alcohol intake: current Alcohol intake frequency: a few times a week Patient Tobacco Use Status: Never used Tobacco e-Cigarette/Vaping Use: Never Used Substance Use Type: Marijuana service: No 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: 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 Gender identity: Female Cognitive needs: No Hearing needs: No Vision needs: No Female Reproductive History Menstrual Date of last menstrual period: 07/10/24 control method: pills Date of last pap smear: 05/06/22 Review of Systems Const All systems reviewed & are unremarkable except as noted in HPI and below Card Reports as per HPI Resp Reports as per HPI GI Reports as per HPI and Reports no additional complaints Reports as per HPI Physical Exam Vital Signs: Last Vital Signs BP 122/70 07/30/24 12:08 BMI result Body Mass Index 21.5 Const General: cooperative, healthy appearing and comfortable Chest Chest palpation & inspection: normal inspection of the chest and normal palpation of entire chest wall Breast/axilla inspection: normal inspection of the breasts and normal inspection of the axillae Breast/axilla palpation: normal palpation of the breasts, normal palpation of the axillae and no axillary lymphadenopathy Resp Effort & Inspection: normal respiratory effort Auscultation: clear to auscultation bilaterally Percussion: percussion normal Cardio Palpation: normal PMI Rate: regular rate Rhythm: regular rhythm Heart sounds: no murmurs and no rubs Peripheral pulses: Peripheral pulses 2+ throughout GI Inspection: Yes normal to inspection Palpation (GI): Soft to palpation, nontender, no guarding, not rigid and No hepatosplenomegaly present Percussion: Yes normal to percussion Auscultation: normal bowel sounds Rectal Exam - Female: deferred General: Yes bladder normal to palpation External Female Exam: No lesion Speculum Exam - Vagina: normal appearance of the vagina, normal palpation, normal vaginal discharge and not erythematous Speculum Exam - Cervix: normal appearance of the cervix and normal palpation Bimanual exam- vagina & uterus: normal bimanual exam, normal palpation, uterine size normal, bladder normal to palpation, consistency normal and normal palpation Bimanual Exam- Adnexa, other: normal adnexae, no masses and no tenderness Assessment & Plan Assessment & Plan (1) Well woman exam: Code(s): Z01.419 - Encounter for gynecological examination (general) (routine) without abnormal findings Category: Medical Plan: Pap smear not indicated this year GC/CT collected Counseled the patient about the recommended dietary allowance of 1000 mg of Calcium & 600 IU of vitamin D. The patient was instructed to perform monthly self-breast exams and to schedule an annual exam in a year; All questions answered and the patient verbalized understanding. Instructed the patient to schedule annual exam in a year Coding Level of Care Code Est Pt Prev Care 18-39y(48812) Diagnoses Well woman exam Z01.419
[2024-07-30 12:08] VITALS: BP 122/70; BMI 21.5
--- OUTSIDE RECORDS SUMMARY | 2024-07-30 14:19 | XMS_ITS | Clinical Summary ---
Author Organization [facility] Address [address] [place] [phone] Phone Care Team Providers Care Airport Location Manager Name Role Phone Clarissa Sargent MD Primary Care Provider Unavailabl e Immunizations Immunization Administration Dates Next Due DTaP 12/02/2003, 1,05/07/1999, [...] age to complete this topic Care Teams Airport Location Manager Relationship Specialty Start Date End Date Clarissa Sargent MD PCP - General 09/26/19
--- OUTSIDE RECORDS SUMMARY | 2024-07-30 14:19 | XMS_ITS | Encounter Summary ---
Author Organization [facility] Address [address] [place] [phone] Phone Care Team Providers Care Cattle Dipper Name Role Phone Clarissa Sargent MD Primary Care Provider Dominic zelaya Encounter Details Date Type Department Care Team (Late st Contact Info) Description 08/27/2017 Conversion [facility]counter [facility] [address] [id number] Indy Turk MD [address] [place] [address] Social History Tobacco Use Types Packs/Day Years [...] on filedocumented in this encounter Care Teams Cattle Dipper Relationship Specialty Start Date End Date Clarissa Sargent MD PCP - General 09/26/19 documented as of this encounter
== END 2024-07-30 12:28 | disposition home or self-care (01) ==
LOC: HO.HWS 11:50
PROVIDERS: PCP Family Medicine; Visit Provider Obstetrics & Gynecology
DX: Z01.419 Encounter for gynecological examination (general) (routine) without abnormal findings (principal); Z32.02 Encounter for pregnancy test, result negative
CPT/HCPCS: 99395; 99459

== ENCOUNTER 2024-07-30 11:50 | Outpatient (REF) | payer OTHER, SELFPAY ==
[2024-07-31 10:12] LABS: CT PCR NOT DETECTED (Not Detect.); NG PCR NOT DETECTED (Not Detect.)
== END 2024-07-30 11:51 | disposition home or self-care (01) ==
LOC: HO.LNP 11:50
PROVIDERS: PCP Family Medicine; Visit Provider Obstetrics & Gynecology
DX: Z01.419 Encounter for gynecological examination (general) (routine) without abnormal findings (principal)
CPT/HCPCS: 81025; 87491; 87591; 99395; 99459

== ENCOUNTER 2024-11-08 09:18 | Outpatient (REF) | payer OTHER, SELFPAY ==
--- OUTSIDE RECORDS SUMMARY | 2024-11-08 09:31 | XMS_ITS | Clinical Summary ---
Author Organization [facility] Address [address] [place] [phone] Phone Care Team Providers Care Medical Laboratory Manager Name Role Phone Clarissa Sargent MD [...] 09/07/2020 09/07/2010, 12/02/2003, 05/26/2000, Additional history exists COVID-19 Vaccine ( season) 2023 Influenza Vaccines (#1) 2024 Hepatitis B Vaccines Completed 08/13/1999, 05/07/1999, 03/12/1999 [...] age to complete this topic Care Teams Medical Laboratory Manager Relationship Specialty Start Date End Date Clarissa Sargent MD PCP - General 09/26/19
[2024-11-08 13:16] LABS: Anion Gap 10 (12-20); Blood Urea Nitrogen 12 mg/dL (9-16); Calcium 8.4 mg/dL (8.4-10.2); Carbon Dioxide 26 mmol/L (22-29); Chloride 106 mmol/L (96-108); Estimated Glomerular Filt Rate > 60; Potassium 4.1 mmol/L (3.3-5.1); Sodium 138 mmol/L (135-145)
[2024-11-08 13:41] LABS: Free T4 (Free Thyroxine) 1.32 ng/dL (0.71-1.85); Thyroid Stimulating Hormone 1.84 uIU/mL (0.32-4.0)
== END 2024-11-08 09:19 | disposition home or self-care (01) ==
LOC: HO.WFDLDS 09:18
PROVIDERS: Visit Provider Family Medicine
DX: Z00.00 Encounter for general adult medical examination without abnormal findings (principal); E03.9 Hypothyroidism, unspecified
CPT/HCPCS: 36415; 80048; 84439; 84443; 84480